=== PATIENT | female | born 1955 | race Caucasian/White ===

== ENCOUNTER 2019-01-14 18:25 | Emergency (ER) | payer MEDICAID, MEDICARE ==
[2019-01-14] MEDS ORDERED: NYSTATIN 15 GM TUBE TOP STA ×2 (18:36→18:47)
--- NOTE | 2019-01-14 18:42 | Emergency Department Record ---
History of Present Illness - General Chief complaint: Rash Stated complaint: RASH CHEST JABDOMIN Source: Patient Mode of Arrival: Ambulatory Limitations: No limitations - History of Present Illness Initial comments: 63 yo female presents with a rash under her breast that has been increasing for about two weeks. No fevers or chills. She has had similar rashes in the past due to large breasts. Her PCP is Dr Beltran. complaint: Rash -: Week(s) (2) Location: Chest Severity: Moderate Quality: Other (aches, moore) Consistency: Constant Improves with: None Worsens with: Other (large breasts) Context: Other Associated symptoms: Other - Related Data Home Medications Medication Instructions Recorded Confirmed Last Taken Bupropion HCl [Bupropion HCl Sr] 100 mg PO BID 01/14/19 01/14/19 01/14/19 Sertraline HCl [Zoloft] 100 mg PO DAILY 01/14/19 01/14/19 01/14/19 Previous Rx's Medication Instructions Recorded Nystatin 1 apply TP BID #60 gm 01/14/19 Nystatin 30 gm TP BID #4 oint...g. 01/14/19 Allergies Allergy/AdvReac Type Severity Reaction Status Date / Time Sulfa (Sulfonamide Allergy SWELLING Verified 01/14/19 18:31 Antibiotics) (GENERAL) Review of Systems Constitutional: Denies: Chills, Fever, Malaise, Night sweats, Weakness Eyes: Denies: Eye discharge ENT: Denies: Congestion Respiratory: Denies: Cough, Dyspnea Cardiovascular: Denies: Chest pain, Palpitations Endocrine: Denies: Fatigue Gastrointestinal: Denies: Abdominal pain, Diarrhea, Nausea, Vomiting Genitourinary: Denies: Dysuria, Frequency Musculoskeletal: Denies: Arthralgia, Back pain, Neck pain Skin: Reports: Change in color, Rash Neurological: Denies: Confusion, Headache Psychiatric: Denies: Anxiety Hematological/Lymphatic: Denies: Blood Clots, Easy bleeding, Easy bruising, Swollen glands Past Medical History - SOCIAL HISTORY Smoking Status: Former smoker - RESPIRATORY Hx Respiratory Disorders: Yes Hx COPD: Yes - CARDIOVASCULAR Hx Cardio Disorders: Yes Hx Hypertension: Yes - NEURO Hx Neuro Disorders: Yes Hx Headaches: Yes - GI Hx GI Disorders: Yes Hx Reflux: Yes - Hx Genitourinary Disorders: No - ENDOCRINE Hx Endocrine Disorders: No - MUSCULOSKELETAL Hx Musculoskeletal Disorders: No - PSYCH Hx Psych Problems: Yes Hx Anxiety: Yes Hx Depression: Yes - HEMATOLOGY/ONCOLOGY Hx Hematology/Oncology Disorders: No Physical Exam - General General Appearance: Alert, Oriented x3, Cooperative, No acute distress Limitations: No limitations - Head Head exam: Atraumatic, Normal inspection - Eye Eye exam: Normal appearance, PERRL. negative: Conjunctival injection - ENT ENT exam: Normal exam Ear exam: Normal external inspection Nasal Exam: Normal inspection Mouth exam: Normal external inspection - Neck Neck exam: Normal inspection - Respiratory Respiratory exam: Normal lung sounds bilaterally. negative: Decreased breath sounds, Prolonged expiratory - Cardiovascular Cardiovascular Exam: Normal rhythm, Normal heart sounds, Tachycardia Peripheral Pulses: 2+: Radial (R), Radial (L) - GI/Abdominal GI/Abdominal exam: Soft. negative: Tenderness - Rectal Rectal exam: Deferred - exam: Deferred - Extremities Extremities exam: Normal inspection Image of Full Body: 1 - irritated, erythematous, wheepy rash consistent with tinea under the large breasts where there is skin to skin contact - Back Back exam: Reports: Normal inspection - Neurological Neurological exam: Alert, Oriented X3 - Psychiatric Psychiatric exam: Normal affect, Normal mood - Skin Skin exam: Erythema, Rash. negative: Cyanosis, Normal color Type of lesion: Rash Distribution of rash: Chest Description of rash: Discharge, Erythematous Course - Reevaluation(s) Reevaluation #1: 01/14/19 18:40 The rash is consistent with tinea corpora due to her large breast, obesity with skin-skin contact The area was clean very well and nystatin applied I encouraged her to call her PCP tomorrow given this will take possibly a week or more to heal and the progress should be monitored Disposition Disposition: Discharge Clinical Impression: Tinea corporis Disposition: Home, Self-Care Condition: (1) Good Instructions: Tinea Corporis (ED) Additional Instructions: You must clean the skin twice daily and allow it to completely dry under the breasts Apply the Nystatin in the affected area after drying the skin Call your doctor to be seen this week for a recheck on the progress of the healing Prescriptions: Nystatin 30 gm TP BID #4 oint...g. Nystatin 1 apply TP BID #60 gm Forms: Patient Portal Access Quality - Quality Measures Quality Measures: N/A - Blood Pressure Screening Does Patient Have Any of the Following: Active Dx of HTN Blood Pressure Classification: Hypertensive Reading Systolic Measurement: 127 Diastolic Measurement: 106 Screening for High Blood Pressure: Patient Exclusion, Hx of HTN [G9744]
== END 2019-01-14 19:15 | disposition home or self-care (01) ==
LOC: ER 18:25
DX: B35.4 Tinea corporis (principal); I10 Essential (primary) hypertension
CPT/HCPCS: 99282

== ENCOUNTER 2019-05-16 07:36 | Inpatient (IN) | payer MEDICARE ==
[2019-05-16] MEDS ORDERED: IPRATROPIUM/ALBUTEROL (0.5MG/3MG) NEB INH ONE (07:47)
[2019-05-16] MEDS ORDERED: METHYLPREDNISOLONE PF 125MG/VIAL IVP ONE (08:16)
[2019-05-16] MEDS ORDERED: ALBUTEROL SULFATE (0.083%) 2.5 MG/3 ML NEB INH ONE ×2 (08:16→10:37)
[2019-05-16 08:28] LABS: ABSOLUTE NEUTROPHIL COUNT 4.48; BASO % 0.3 % (0-6); EOS % 2.3 % (0-6); GRAN % 57.1 % (47-80); HEMATOCRIT 42.1 % (35.0-47.0); HEMOGLOBIN 12.6 gm/dl (11.6-16.0); LYMPH % 31.8 % (16-45); MEAN CELL VOLUME 91.3 fl (81-97); MEAN CORPUSCULAR HEMOGLOBIN 27.3 pg (27-33); MEAN CORPUSCULAR HGB CONC 29.9 g/dl (32-36); MEAN PLATELET VOLUME 10.2 fl (7.4-10.4); MONO % 8.5 % (0-9); PLATELET COUNT 245 K/uL (130-400); RED BLOOD COUNT 4.61 M/uL (3.80-5.40); RED CELL DISTRIBUTION WIDTH 14.4 % (11.5-14.5); WHITE BLOOD COUNT W/O DIFF 7.9 K/uL (4.2-12.2)
[2019-05-16 08:41] LABS: BLOOD UREA NITROGEN 9 mg/dL (8-23); CREATININE 0.6 mg/dL (0.5-0.9); EST GLOMERULAR FILTRATION RATE > 60 mL/min
[2019-05-16 08:44] LABS: GLUCOSE,RANDOM 137 mg/dL (74-109)
--- NOTE | 2019-05-16 09:09 | Emergency Department Record ---
History of Present Illness - General Chief Complaint: Difficulty Breathing Stated Complaint: MARICARMEN Time Seen by Provider: 05/16/19 08:02 Source: Patient Mode of Arrival: Stretcher Limitations: No limitations - History of Present Illness Initial Comments: pt has been increasingly sob recently. pt had pfts recently. her sats were in the 80s when ems got there. she inproved w oxygen. she quit smoking 5mos ago MD Complaint: Shortness of breath Onset/Timin -: Week(s) Consistency: Constant Worsens With: Exertion Known History Of: COPD Treatments Prior to Arrival: Oxygen Treatment Prior to Arrival Comment:: 3 liters - Related Data Allergies Allergy/AdvReac Type Severity Reaction Status Date / Time Sulfa (Sulfonamide Allergy SWELLING Verified 01/14/19 18:31 Antibiotics) (GENERAL) Travel Screening - Travel/Exposure Within Last 30 Days Have you traveled within the last 30 days?: No - Travel/Exposure Within Last Year Have you traveled outside the [place] in the last year?: No - Additonal Travel Details Have you been exposed to anyone with a communicable illness?: No - Travel Symptoms Symptom Screening: None Review of Systems Reviewed: No additional complaints except as noted below Constitutional: Reports: As per HPI. Denies: Chills, Fever, Malaise, Night sweats, Weakness, Weight change Eyes: Reports: As per HPI. Denies: Eye discharge, Eye pain, Photophobia, Vision change ENT: Reports: As per HPI. Denies: Congestion, Dental pain, Ear pain, Epistaxis, Hearing loss, Throat pain Respiratory: Reports: As per HPI, Cough, Dyspnea. Denies: Hemoptysis, Stridor, Wheezes Cardiovascular: Reports: As per HPI. Denies: Arrhythmia, Chest pain, Dyspnea on exertion, Edema, Murmurs, Orthopnea, Palpitations, Paroxysmal nocturnal dyspnea, Rheumatic Fever, Syncope Endocrine: Reports: As per HPI. Denies: Fatigue, Heat or cold intolerance, Polydipsia, Polyuria Gastrointestinal: Reports: As per HPI. Denies: Abdominal pain, Constipation, Diarrhea, Hematemesis, Hematochezia, Melena, Nausea, Vomiting Genitourinary: Reports: As per HPI. Denies: Abnormal menses, Discharge, Dyspareunia, Dysuria, Frequency, Hematuria, Incontinence, Retention, Urgency Musculoskeletal: Reports: As per HPI. Denies: Arthralgia, Back pain, Gout, Joint swelling, Myalgia, Neck pain Skin: Reports: As per HPI. Denies: Bruising, Change in color, Change in hair/nails, Lesions, Pruritus, Rash Neurological: Reports: As per HPI. Denies: Abnormal gait, Confusion, Headache, Numbness, Paresthesias, Seizure, Tingling, Tremors, Vertigo, Weakness Psychiatric: Reports: As per HPI. Denies: Anxiety, Auditory hallucinations, Depression, Homicidal thoughts, Suicidal thoughts, Visual hallucinations Hematological/Lymphatic: Reports: As per HPI. Denies: Anemia, Blood Clots, Easy bleeding, Easy bruising, Swollen glands Past Medical History - SOCIAL HISTORY Smoking Status: Former smoker Alcohol Use: None Drug Use: None - RESPIRATORY Hx Respiratory Disorders: Yes Hx COPD: Yes - CARDIOVASCULAR Hx Cardio Disorders: Yes Hx Hypertension: Yes - NEURO Hx Neuro Disorders: Yes Hx Headaches: Yes - GI Hx GI Disorders: Yes Hx Reflux: Yes - Hx Genitourinary Disorders: No - ENDOCRINE Hx Endocrine Disorders: No - MUSCULOSKELETAL Hx Musculoskeletal Disorders: No - PSYCH Hx Psych Problems: Yes Hx Anxiety: Yes Hx Depression: Yes - HEMATOLOGY/ONCOLOGY Hx Hematology/Oncology Disorders: No Family Medical History Any Significant Family History?: No Physical Exam - General General Appearance: Alert, Oriented x3, Cooperative, Mild distress - Head Head exam: Normal inspection - Eye Eye exam: Normal appearance, PERRL, EOMI Pupils: Normal accommodation - ENT ENT exam: Normal exam, Mucous membranes moist, Normal external ear exam, Normal orophraynx Ear exam: Normal external inspection. negative: External canal tenderness Nasal Exam: Normal inspection. negative: Discharge, Sinus tenderness Mouth exam: Normal external inspection, Tongue normal Teeth exam: Normal inspection. negative: Dental caries Throat exam: Normal inspection. negative: Tonsillar erythema, Tonsillar exudate - Neck Neck exam: Normal inspection, Full ROM. negative: Tenderness - Respiratory Respiratory exam: Respiratory distress, Wheezes - Cardiovascular Cardiovascular Exam: Regular rate, Normal rhythm, Normal heart sounds - GI/Abdominal GI/Abdominal exam: Soft, Normal bowel sounds. negative: Tenderness - Rectal Rectal exam: Deferred - exam: Deferred - Extremities Extremities exam: Full ROM, Normal capillary refill, Pedal edema. negative: Tenderness - Back Back exam: Reports: Normal inspection, Full ROM. Denies: Muscle spasm, Rash noted, Tenderness - Neurological Neurological exam: Alert, CN II-XII intact, Normal gait, Oriented X3 - Psychiatric Psychiatric exam: Normal affect, Normal mood - Skin Skin exam: Dry, Intact, Normal color, Warm Course Vital Signs 05/16/19 05/16/19 05/16/19 07:42 07:50 08:20 Temperature 97.9 F Pulse Rate 70 71 Pulse Rate [ 67 Pulse Ox Probe] Respiratory 20 16 20 Rate Blood Pressure 173/80 Blood Pressure 142/86 [Right Arm] Pulse Ox 95 95 90 L 05/16/19 05/16/19 08:33 08:38 Temperature Pulse Rate 69 Pulse Rate [ Pulse Ox Probe] Respiratory 18 Rate Blood Pressure Blood Pressure [Right Arm] Pulse Ox 97 91 L - Reevaluation(s) Reevaluation #1: 05/16/19 10:38 pt feels better but her sats continue in the upper 80s on 2 ltrs so an abg was obtained. her co2 is 44.9 so her o2 was increased to 3ltrs 05/16/19 10:40 Medical Decision Making - Lab Data Result diagrams: 05/16/19 07:50 05/16/19 07:50 Lab Results 05/16/19 05/16/19 Range/Units 07:50 07:50 WBC 7.9 (4.2-12.2) K/uL RBC 4.61 (3.80-5.40) M/uL Hgb 12.6 (11.6-16.0) gm/dl Hct 42.1 (35.0-47.0) % MCV 91.3 (81-97) fl MCH 27.3 (27-33) pg MCHC 29.9 L (32-36) g/dl RDW 14.4 (11.5-14.5) % Plt Count 245 (130-400) K/uL MPV 10.2 (7.4-10.4) fl Gran % 57.1 (47-80) % Lymphocytes % 31.8 (16-45) % Monocytes % 8.5 (0-9) % Eosinophils % 2.3 (0-6) % Basophils % 0.3 (0-6) % Absolute Neutrophils 4.48 Sodium 142 (136-145) mmol/L Potassium 4.2 (3.4-4.5) mmol/L Chloride 102 (98-107) mmol/L Carbon Dioxide 27.0 (22-29) mmol/L Anion Gap 13.0 (7-16) BUN 9 (8-23) mg/dL Creatinine 0.6 (0.5-0.9) mg/dL Estimated GFR > 60 mL/min Random Glucose 137 H (74-109) mg/dL Calcium 8.9 (8.8-10.2) mg/dL NT-Pro-B Natriuret Pep 783.20 H (<125) pg/mL Disposition Disposition: Admit Clinical Impression: Acute exacerbation of chronic obstructive pulmonary disease (COPD), Hypoxia Disposition: Still a Patient at [facility] Decision to Admit: Admit from ER Decision to Admit Date: 05/16/19 Decision to Admit Time: 10:42 Forms: Patient Portal Access Quality - Quality Measures Quality Measures: N/A - Blood Pressure Screening Does Patient Have Any of the Following: Active Dx of HTN Blood Pressure Classification: Pre-Hypertensive BP Reading Systolic Measurement: 173 Diastolic Measurement: 80 Screening for High Blood Pressure: Patient Exclusion, Hx of HTN [G9744]
[2019-05-16 10:20] LABS: ARTERIAL BLOOD GAS BASE EXCESS 2.4 mmol/L (-2 - 3); ARTERIAL BLOOD GAS HCO3 26.9 mmol/L (18-23); ARTERIAL BLOOD GAS PCO2 44.9 mmHg (35-48)
[2019-05-16 10:23] LABS: CARBOXYHEMOGLOBIN 5.9 % (0-1.5)
[2019-05-16 10:24] LABS: ALLEN TEST PASS
[2019-05-16] MEDS ORDERED: ALBUTEROL SULFATE (0.083%) 2.5 MG/3 ML NEB INH PRN (11:03)
[2019-05-16] MEDS ORDERED: IPRATROPIUM/ALBUTEROL (0.5MG/3MG) NEB INH PRN (11:03)
[2019-05-16] MEDS ORDERED: ALPRAZOLAM 1 MG TAB PO SCH (11:03)
[2019-05-16] MEDS ORDERED: ALPRAZOLAM 0.25 MG TABLET PO PRN (12:01)
[2019-05-16] MEDS: METHYLPREDNISOLONE PF 125MG/VIAL IVP SCH ×2 (12:02→18:07)
--- NOTE | 2019-05-16 12:04 | History & Physical ---
History of Present Illness - Date of Service Date of Service for History & Physical: 05/17/19 - History of Present Illness Admitting Diagnosis: acute exacerbation of copd w hypoxia History of Present Illness: Mrs. Barboza if a 64 y/o female with a 55 pk/yr smoking history who presents with progressive shortness of breath over the past few weeks. The patient says that yesterday she went outside to get the mail and when she returned she could hardly breath. She says that she quit smoking cigarettes 5 months ago but she now Vapes. She says that she does not use home inhalers and has not had any previous diagnosis of COPD. She recently had a PFT done on 05/04/19 due to her increasing respiratory issues and this revealed obstructive lung disease and em physema. She has not yet followed up with her PCP. She denies chest pain, cough, fever or swelling of her lower extremities. On arrival to the ED the patient was dyspneic with saturations 86-89% and increased to > 90% with 2 liters nasal cannula oxygen. Chest xray was not suggestive of infiltrate or opacities but noted chronic interstitial disease and emphysema. The patient is admitted for new diagnosis of COPD w/ emphysema. PCP: Endy Beltran Travel Screening - Travel/Exposure Within Last 30 Days Have you traveled within the last 30 days?: No - Travel/Exposure Within Last Year Have you traveled outside the [place] in the last year?: No - Additonal Travel Details Have you been exposed to anyone with a communicable illness?: No - Travel Symptoms Symptom Screening: None Review of Systems Constitutional: Reports: As per HPI. Denies: Chills, Fever, Malaise, Night s weats, Weakness, Weight change Eyes: Reports: As per HPI. Denies: Eye discharge, Eye pain, Photophobia, Vision change ENT: Reports: As per HPI. Denies: Congestion, Dental pain, Ear pain, Epistaxis, Hearing loss, Throat pain Respiratory: Reports: As per HPI, Cough, Dyspnea. Denies: Hemoptysis, Stridor, Wheezes Cardiovascular: Reports: As per HPI. Denies: Arrhythmia, Chest pain, Dyspnea on exertion, Edema, Murmurs, Orthopnea, Palpitations, Paroxysmal nocturnal dyspnea, Rheumatic Fever, Syncope Endocrine: Reports: As per HPI. Denies: Fatigue, Heat or cold intolerance, Polydipsia, Polyuria Gastrointestinal: Reports: As per HPI. Denies: Abdominal pain, Constipation, Diarrhea, Hematemesis, Hematochezia, Melena, Nausea, Vomiting Genitourinary: Reports: As per HPI. Denies: Abnormal menses, Discharge, Dyspareunia, Dysuria, Frequency, Hematuria, Incontinence, Retention, Urgency Musculoskeletal: Reports: As per HPI. Denies: Arthralgia, Back pain, Gout, Joint swelling, Myalgia, Neck pain Skin: Reports: As per HPI. Denies: Bruising, Change in color, Change in rebecca r/nails, Lesions, Pruritus, Rash Neurological: Reports: As per HPI. Denies: Abnormal gait, Confusion, Headache, Numbness, Paresthesias, Seizure, Tingling, Tremors, Vertigo, Weakness Psychiatric: Reports: As per HPI. Denies: Anxiety, Auditory hallucinations, Depression, Homicidal thoughts, Suicidal thoughts, Visual hallucinations Hematological/Lymphatic: Reports: As per HPI. Denies: Anemia, Blood Clots, Easy bleeding, Easy bruising, Swollen glands Past Medical History - SOCIAL HISTORY Smoking Status: Former smoker Alcohol Use: None Alcohol Use Comment: recovered alcoholic Drug Use: None - RESPIRATORY Hx Respiratory Disorders: Yes Hx COPD: Yes - CARDIOVASCULAR Hx Cardio Disorders: Yes Hx Hypertension: Yes - NEURO Hx Neuro Disorders: Yes Hx Headaches: Yes - GI Hx GI Disorders: Yes Hx Reflux: Yes - Hx Genitourinary Disorders: No - ENDOCRINE Hx Endocrine Disorders: No - MUSCULOSKELETAL Hx Musculoskeletal Disorders: No - PSYCH Hx Psych Problems: Yes Hx Anxiety: Yes Hx Depression: Yes - HEMATOLOGY/ONCOLOGY Hx Hematology/Oncology Disorders: No Family Medical History Any Significant Family History?: Yes Hx Alcohol Use: Father Hx Cancer: Father H&P Meds/Allergies - Allergies Allergies: Allergies Allergy/AdvReac Type Severity Reaction Status Date / Time Sulfa (Sulfonamide Allergy SWELLING Verified 01/14/19 18:31 Antibiotics) (GENERAL) - Active Medications Active Medications: Current Medications Acetaminophen (Tylenol 500mg Tab) 1,000 mg PO Q6H PRN PRN Reason: PAIN - MILD(1-4)/FEVER Albuterol Sulfate (Albuterol Sulfate) 2.5 mg INH RESP.Q4H PRN PRN Reason: DIFFICULTY IN BREATHING Albuterol/Ipratropium (Duoneb) 3 ml INH RESP.Q6H PRN PRN Reason: WHEEZING Alprazolam (Xanax) 1 mg PO NOW [facility] Aspirin (Ecotrin (Ec)) 325 mg PO DAILY [facility] Methylprednisolone Sodium Succinate (Solu-Medrol) 60 mg IVP Q8H [facility] Metoprolol Succinate (Toprol Xl) 50 mg PO DAILY [facility] Non-Formulary Medication (Bupropion Hcl [Bupropion Hcl Sr]) 100 mg PO BID [facility] Non-Formulary Medication (Risperidone [Risperidone Odt]) 1 mg PO ASDIR [facility] Pantoprazole Sodium (Protonix) 40 mg PO DAILYAC [facility] Ranitidine HCl (Zantac) 300 mg PO QHS [facility] Sertraline HCl (Zoloft) 100 mg PO DAILY [facility] Theophylline (Giorgi-Dur) 300 mg PO BID [facility] Physical Exam - Vital Signs Vital Signs: Vital Signs - Last 24 Hrs Temp Pulse Pulse Resp BP BP Pulse Ox 05/16/19 11:39 20 05/16/19 11:19 98.8 F 70 17 187/88 96 05/16/19 11:15 78 12 171/95 90 L 05/16/19 10:44 78 12 97 05/16/19 10:30 76 16 171/95 89 L 05/16/19 09:30 69 18 157/87 89 L 05/16/19 09:00 66 18 178/99 89 L 05/16/19 08:38 91 L 05/16/19 08:33 69 18 97 05/16/19 08:20 67 20 142/86 90 L 05/16/19 07:50 71 16 95 05/16/19 07:42 97.9 F 70 20 173/80 95 - General General Appearance: Alert, Oriented x3, Cooperative, Mild distress Limitations: No limitations - Head Head exam: Normal inspection - Eye Eye exam: Normal appearance, PERRL, EOMI Pupils: Normal accommodation - ENT ENT exam: Normal exam, Mucous membranes moist, Normal external ear exam, Normal orophraynx Ear exam: Normal external inspection. negative: External canal tenderness Nasal Exam: Normal inspection. negative: Discharge, Sinus tenderness Mouth exam: Normal external inspection, Tongue normal Teeth exam: Normal inspection. negative: Dental caries Throat exam: Normal inspection. negative: Tonsillar erythema, Tonsillar exudate - Neck Neck exam: Normal inspection, Full ROM. negative: Tenderness - Respiratory Respiratory exam: Respiratory distress, Wheezes - Cardiovascular Cardiovascular Exam: Regular rate, Normal rhythm, Normal heart sounds - GI/Abdominal GI/Abdominal exam: Soft, Normal bowel sounds. negative: Tenderness - Rectal Rectal exam: Deferred - exam: Deferred - Extremities Extremities exam: Full ROM, Normal capillary refill, Pedal edema. negative: Tenderness - Back Back exam: Reports: Normal inspection, Full ROM. Denies: Muscle spasm, Rash noted, Tenderness - Neurological Neurological exam: Alert, CN II-XII intact, Normal gait, Oriented X3 - Psychiatric Psychiatric exam: Normal affect, Normal mood - Skin Skin exam: Dry, Intact, Normal color, Warm Results - Labs Result Diagrams: 05/17/19 06:05 05/17/19 06:05 Labs Last 24 Hours: Laboratory Results - last 24 hr 05/16/19 05/16/19 05/16/19 07:50 07:50 07:50 WBC 7.9 RBC 4.61 Hgb 12.6 Hct 42.1 MCV 91.3 MCH 27.3 MCHC 29.9 L RDW 14.4 Plt Count 245 MPV 10.2 Gran % 57.1 Lymphocytes % 31.8 Monocytes % 8.5 Eosinophils % 2.3 Basophils % 0.3 Absolute Neutrophils 4.48 Puncture Site pCO2 pO2 HCO3 Oxyhemoglobin ABG pH ABG O2 Saturation ABG Base Excess Frank Test Carboxyhemoglobin Methemoglobin Actual Respiration Rate FiO2 Sodium 142 Potassium 4.2 Chloride 102 Carbon Dioxide 27.0 Anion Gap 13.0 BUN 9 Creatinine 0.6 Estimated GFR > 60 Random Glucose 137 H Calcium 8.9 NT-Pro-B Natriuret Pep 783.20 H Theophylline 0.8 L 05/16/19 10:10 WBC RBC Hgb Hct MCV MCH MCHC RDW Plt Count MPV Gran % Lymphocytes % Monocytes % Eosinophils % Basophils % Absolute Neutrophils Puncture Site Left wrist pCO2 44.9 pO2 54.0 L HCO3 26.9 H Oxyhemoglobin Not Reportable ABG pH 7.40 ABG O2 Saturation 84.0 L* ABG Base Excess 2.4 Frank Test Pass Carboxyhemoglobin 5.9 H Methemoglobin Not Reportable Actual Respiration Rate 18.0 FiO2 Sodium Potassium Chloride Carbon Dioxide Anion Gap BUN Creatinine Estimated GFR Random Glucose Calcium NT-Pro-B Natriuret Pep Theophylline VTE H&P Assessment - Risk for VTE Risk for VTE: Yes Risk Level: Moderate Risk Assessment Date: 05/16/19 Risk Assessment Time: 12:03 VTE Orders Placed or Will Be Placed: Yes Plan - Inpatient Certification Inpatient Certification: Admit to inpatient care: Based on my medical assessment, after consideration of patient's risk factors (age, co-morbidities and patient presenting symptoms and acuity), I expect that this patient will remain in the hospital greater than or equal to two midnights and that the services needed warrant inpatient care because: Patient Risk Factors: COPD Exacerbation Estimated length of stay: 72 hours The patient may reasonably be expected to be discharged or transferred to a hospital within 96 hours after admission to [facility]. Post hospital care (if known): Oxygen therapy I certify that my determination is in accordance with my understanding of Medicare requirements for reasonable and necessary inpatient services. 05/16/19 12:03 - Detailed Diagnosis and Plan (1) Acute exacerbation of chronic obstructive pulmonary disease (COPD) Current Visit: Yes Status: Acute Base Code: J44.1 - CHRONIC OBSTRUCTIVE PULMONARY DISEASE W (ACUTE) EXACERBATION Comment: 05/16/19: - Hx of COPD/emphysema presenting with dyspnea. Not on home O2 therapy. - SaO2 on admission between 89-95%. - PFT 05/04/19: indicating FEV1 59% and FEV1/FVC ratio 69% (GOLD criteria II/ Grade B) - CXR: emphysetamous lungs with chronic interstitial changes. No infilitrates. - Respiratory therapy with Albuterol 2.5mg nebs Q4H PRN, Duonebs Q6H [facility] ruse daily. - Solumedrol 60mg Q8H, decrease to 60mg daily and then PO Prednisone at discharge. - Titrate oxygen to keep SaO2 > 90% - O2 qualifier for home oxygen therapy. (2) Hypoxia Current Visit: Yes Status: Acute Base Code: R09.02 - HYPOXEMIA Comment: 05/16/19: - SaO2 89% -95% on 2 liters NC - 2/2 to acute COPD exacerbation - Titrate oxygen to keep sats > 90% (3) Hypertension Current Visit: Yes Status: Acute Base Code: I10 - ESSENTIAL (PRIMARY) HYPERTENSION Comment: 05/16/19: - BP not controlled on Metoprolol XL 50mg daily. - Start Hydralazine 10mg QID, hold for SBP < 130. (4) Anxiety Current Visit: Yes Status: Acute Base Code: F41.9 - ANXIETY DISORDER, UNSPECIFIED Comment: 05/16/19: - Xanax .5mg Q12H PRN (5) DVT prophylaxis Current Visit: Yes Status: Acute Base Code: Z29.9 - ENCOUNTER FOR PROPHYLACTIC MEASURES, UNSPECIFIED Comment: 05/16/19: - Moderate risk of DVT due impaired pulmonary function and bed rest. - Lovenox 40mg SQ daily. (6) Full code status Current Visit: Yes Status: Acute Base Code: Z78.9 - OTHER SPECIFIED HEALTH STATUS Comment: 05/16/19: - Full code status.
[2019-05-16] MEDS: ENOXAPARIN 40 MG/0.4 ML SYR SC SCH (12:39)
[2019-05-16] MEDS: ACETAMINOPHEN 500 MG TABLET PO PRN ×2 (13:24→20:37)
[2019-05-16] MEDS: HYDRALAZINE HCL 10 MG TABLET PO SCH ×3 (13:24→22:02)
[2019-05-16] MEDS: RISPERIDONE 2 MG MC SCH ×2 (17:00→22:04)
[2019-05-16] MEDS: BUPROPION 100 MG MC SCH ×2 (17:00→22:04)
[2019-05-16] MEDS: RANITIDINE HCL 150 MG TABLET PO SCH ×2 (20:37→22:04)
[2019-05-16] MEDS: THEOPHYLLINE 300 MG PO SCH (22:02)
[2019-05-17] MEDS: METHYLPREDNISOLONE PF 125MG/VIAL IVP SCH ×2 (02:39→10:34)
[2019-05-17] MEDS: ACETAMINOPHEN 500 MG TABLET PO PRN ×2 (02:39→10:34)
[2019-05-17 06:44] LABS: HEMATOCRIT 40.2 % (35.0-47.0); HEMOGLOBIN 12.1 gm/dl (11.6-16.0); MEAN CELL VOLUME 91.2 fl (81-97); MEAN CORPUSCULAR HEMOGLOBIN 27.4 pg (27-33); MEAN CORPUSCULAR HGB CONC 30.1 g/dl (32-36); PLATELET COUNT 253 K/uL (130-400); RED BLOOD COUNT 4.41 M/uL (3.80-5.40); RED CELL DISTRIBUTION WIDTH 14.3 % (11.5-14.5); WHITE BLOOD COUNT W/O DIFF 9.9 K/uL (4.2-12.2)
[2019-05-17 06:55] LABS: BLOOD UREA NITROGEN 9 mg/dL (8-23); CREATININE 0.6 mg/dL (0.5-0.9); EST GLOMERULAR FILTRATION RATE > 60 mL/min; GLUCOSE,RANDOM 159 mg/dL (74-109)
[2019-05-17] MEDS ORDERED: PANTOPRAZOLE SODIUM 40 MG TABLET PO SCH (07:00)
[2019-05-17 07:10] LABS: PLATELET ESTIMATE NORMAL (NORMAL)
[2019-05-17] MEDS: METOPROLOL SUCC 50 MG TABLET PO SCH ×2 (08:17→09:09)
[2019-05-17] MEDS: HYDRALAZINE HCL 10 MG TABLET PO SCH ×2 (08:17→09:07)
[2019-05-17] MEDS: ENOXAPARIN 40 MG/0.4 ML SYR SC SCH ×2 (08:18→09:08)
[2019-05-17] MEDS: ASPIRIN 325 MG TAB ENTERIC-COATED PO SCH ×2 (08:18→09:07)
[2019-05-17] MEDS: RISPERIDONE 2 MG MC SCH ×2 (08:20→09:08)
[2019-05-17] MEDS: BUPROPION 100 MG MC SCH ×2 (08:20→09:08)
[2019-05-17] MEDS: THEOPHYLLINE 300 MG PO SCH (09:09)
[2019-05-17] MEDS ORDERED: SERTRALINE HCL 50 MG TABLET PO SCH (10:00)
[2019-05-17] MEDS ORDERED: UMECLIDINIUM BROMIDE (INCRUSE) 62.5MCG IH SCH (10:00)
--- NOTE | 2019-05-17 11:14 | Discharge Summary ---
Providers Discharge Summary Date: 05/17/19 Date of admission: 05/16/19 11:01 Attending physician: JOSE CRUZ Primary care physician: FARHANA BELTRAN D.O. Physical Exam - Vital Signs Vital Signs: Vital Signs - Last 24 Hrs Temp Pulse Pulse Resp BP BP Pulse Ox 05/17/19 07:38 98.5 F 99 H 16 179/101 92 L 05/17/19 07:37 24 05/17/19 05:45 98.7 F 95 H 20 182/84 94 L 05/16/19 21:30 97.4 F L 99 H 19 185/88 92 L 05/16/19 21:15 97 H 92 L 05/16/19 19:13 99.2 F 98 H 16 202/90 94 L 05/16/19 14:45 98.4 F 94 H 17 155/86 92 L 05/16/19 11:39 20 05/16/19 11:19 98.8 F 70 17 187/88 96 05/16/19 11:15 78 12 171/95 90 L - General General Appearance: Alert, Oriented x3, Cooperative, Mild distress Limitations: No limitations - Head Head exam: Normal inspection - Eye Eye exam: Normal appearance, PERRL, EOMI Pupils: Normal accommodation - ENT ENT exam: Normal exam, Mucous membranes moist, Normal external ear exam, Normal orophraynx Ear exam: Normal external inspection. negative: External canal tenderness Nasal Exam: Normal inspection. negative: Discharge, Sinus tenderness Mouth exam: Normal external inspection, Tongue normal Teeth exam: Normal inspection. negative: Dental caries Throat exam: Normal inspection. negative: Tonsillar erythema, Tonsillar exudate - Neck Neck exam: Normal inspection, Full ROM. negative: Tenderness - Respiratory Respiratory exam: Decreased breath sounds, Prolonged expiratory - Cardiovascular Cardiovascular Exam: Regular rate, Normal rhythm, Normal heart sounds Peripheral Pulses: 3+: Radial (R), Radial (L), Dorsalis Pedis (R), Dorsalis Pedis (L) - GI/Abdominal GI/Abdominal exam: Soft, Normal bowel sounds. negative: Tenderness - Rectal Rectal exam: Deferred - exam: Deferred - Extremities Extremities exam: Full ROM, Normal capillary refill, Pedal edema. negative: Tenderness - Back Back exam: Reports: Normal inspection, Full ROM. Denies: Muscle spasm, Rash noted, Tenderness - Neurological Neurological exam: Alert, CN II-XII intact, Normal gait, Oriented X3 - Psychiatric Psychiatric exam: Normal affect, Normal mood - Skin Skin exam: Dry, Intact, Normal color, Warm Hospitalization - Hospitalization Admission Diagnosis: acute exacerbation of copd w hypoxia - Problem List/Discharge Diagnosis (1) Acute exacerbation of chronic obstructive pulmonary disease (COPD) Current Visit: Yes Status: Acute Base Code: J44.1 - CHRONIC OBSTRUCTIVE PULMONARY DISEASE W (ACUTE) EXACERBATION Comment: 05/17/19: - Hx of COPD/emphysema presenting with dyspnea. Not on home O2 therapy. - SaO2 on admission between 89-95%. - PFT 05/04/19: indicating FEV1 59% and FEV1/FVC ratio 69% (GOLD criteria II/ Grade B) - CXR: emphysetamous lungs with chronic interstitial changes. No infilitrates. - Respiratory therapy with Albuterol 2.5mg nebs Q4H PRN, Duonebs Q6H OWEN, Incruse daily. - Solumedrol 60mg Q8H, decrease to 60mg daily and then PO Prednisone at discharge. - Titrate oxygen to keep SaO2 > 90% - O2 qualifier for home oxygen therapy completed. Sats 86% at rest on RA, Ambulatory 93% on 3 liters. Patient to wear oxygen at all times. (2) Hypoxia Current Visit: Yes Status: Acute Base Code: R09.02 - HYPOXEMIA Comment: 05/17/19: - SaO2 86% -89% on 2 liters NC in ED - 2/2 to acute COPD exacerbation - Titrate oxygen to keep sats > 90% - Oxygen qualifier: 86% RA at rest. (3) Hypertension Current Visit: Yes Status: Acute Base Code: I10 - ESSENTIAL (PRIMARY) HYPERTENSION Comment: 05/17/19: - BP not controlled on Metoprolol XL 50mg daily. - Start Hydralazine 10mg QID, hold for SBP < 130. - BP at discharge 150/86 (4) Anxiety Current Visit: Yes Status: Acute Base Code: F41.9 - ANXIETY DISORDER, UNSPECIFIED Comment: 05/17/19: - Xanax .5mg Q12H PRN (5) DVT prophylaxis Current Visit: Yes Status: Acute Base Code: Z29.9 - ENCOUNTER FOR PROPHYLACTIC MEASURES, UNSPECIFIED Comment: 05/17/19: - Moderate risk of DVT due impaired pulmonary function and bed rest. - Lovenox 40mg SQ daily. (6) Full code status Current Visit: Yes Status: Acute Base Code: Z78.9 - OTHER SPECIFIED HEALTH STATUS Comment: 05/17/19: - Full code status. - Hospitalization Course Procedures: Imaging and X-Rays 05/16/19 08:16 CHEST 2 VIEWS [RAD] Stat Cardiology Procedures 05/16/19 08:16 Inpatient Nursing Aide NOW Abnormal Labs: Abnormal Lab Results 05/16/19 05/16/19 05/16/19 Range/Units 07:50 07:50 07:50 MCHC 29.9 L (32-36) g/dl Neutrophils % (47-80) % Lymphocytes (16-45) % pO2 (83-108) mmHg HCO3 (18-23) mmol/L ABG O2 Saturation (95-98) % Carboxyhemoglobin (0-1.5) % Random Glucose 137 H (74-109) mg/dL NT-Pro-B Natriuret Pep 783.20 H (<125) pg/mL Theophylline 0.8 L (10.0-20.0) ug/mL 05/16/19 05/17/19 05/17/19 Range/Units 10:10 06:05 06:05 MCHC 30.1 L (32-36) g/dl Neutrophils % 83.0 H (47-80) % Lymphocytes 12.0 L (16-45) % pO2 54.0 L (83-108) mmHg HCO3 26.9 H (18-23) mmol/L ABG O2 Saturation 84.0 L* (95-98) % Carboxyhemoglobin 5.9 H (0-1.5) % Random Glucose 159 H (74-109) mg/dL NT-Pro-B Natriuret Pep (<125) pg/mL Theophylline (10.0-20.0) ug/mL Condition at Discharge: (1) Good Discharge Medications - Discharge Medications Prescriptions: Hydralazine HCl [Apresoline] 10 mg PO TID #30 tablet Home Medications: Ambulatory Orders Alprazolam [Xanax] 1 mg PO NOW 04/28/15 [Last Taken 05/16/19] Aspirin [Aspirin EC] 325 mg PO DAILY 04/28/15 [Last Taken 05/16/19] Metoprolol Succinate [Toprol Xl] 50 mg PO DAILY 04/28/15 [Last Taken 05/16/19] Omeprazole [Prilosec] 20 mg PO DAILY 04/28/15 [Last Taken 05/16/19] Ranitidine HCl [Zantac] 300 mg PO QHS 04/28/15 [Last Taken 05/15/19] Risperidone [Risperidone Odt] 1 mg PO ASDIR 04/28/15 [Last Taken 05/16/19] Tiotropium [place] [Spiriva] 1 cap IH ASDIR 04/28/15 [Last Taken 05/16/19] Bupropion HCl [Bupropion HCl Sr] 100 mg PO BID 01/14/19 [Last Taken 05/16/19] Sertraline HCl [Zoloft] 100 mg PO DAILY 01/14/19 [Last Taken 05/16/19] Albuterol Sulfate [Ventolin Hfa] 1 - 2 puff IH DAILY PRN #1 inhaler 05/17/19 [Last Taken Unknown] Hydralazine HCl [Apresoline] 10 mg PO TID #30 tablet 05/17/19 [Last Taken Unknown] Prednisone [Prednisone 20Mg] 40 mg PO DAILY #6 tab 05/17/19 [Last Taken Unknown] Discharge Plan - Discharge Instructions Activity at Discharge: Wear Oxygen At All Times Diet at Discharge: Low Salt Diet Additional Instructions: Wear oxygen at all times. Keep at 3 liters. Use Spiriva daily as instructed. Albuterol rescue inhaler prescribed is to be used as needed for shortness of breath. Prednisone 40mg, 40mg, 20mg, 20mg tapering dose for the next 4 days. Follow up with Dr. Beltran this week. Quality Measures - Quality Measures Quality Measures: Advance Directives, Documentation of Current Medications in Medical Record, Elder Maltreatment Screen and Follow-Up Plan, Screening for High Blood Pressure and F/U Documented - Current Medications Quality Measure: Measure #130: Documentation of Current Medications Documentation of Current Medications: <Current Medications Documented/Reviewed> [G8427] - Blood Pressure Screening Quality Measure: Screening for High Blood Pressure and Follow-Up Documented Does Patient Have Any of the Following: Active Dx of HTN Blood Pressure Classification: Hypertensive Reading Systolic Measurement: 171 Diastolic Measurement: 95 Screening for High Blood Pressure: Patient Exclusion, Hx of HTN [G9744] - Advance Directives Quality Measure: Measure #47: Care Plan Advance Directives Established: No Advance Directives Information Provided To Patient: No Advance Directives on File: No Living Will: No Power of Swing Saw Operator: No Advance Care Planning: <Care Plan/Decision Maker Not Decided; Discussed & Documented> [1124F] - Elder Abuse Suspicion Index Screening: Elder Abuse Suspicion Index Screening Rely on people for bathing, dressing, shopping, banking, etc: No Prevented from getting food, clothes, medication, etc: No Made to feel shamed or threatened by someone: No Forced to sign papers or use money against will: No Feel afraid, touched in ways not wanted or hurt physically: No Poor eye contact, withdrawn, malnourished, cuts or bruises: No Screening Result: Negative result EASI Reference Information: Shannon DOMINGO, Tavon C, Cale D, Danial Membreno.Development and validation of a tool to assist physicians identification of elder abuse: The Elder Abuse Suspicion Index (EASI ). Journal of Elder Abuse and Neglect, 2008; 20 (3): 276-300. - Elder Maltreatment Screen Quality Measures: Elder Maltreatment Screen and Follow-Up Plan Elder Maltreatment Screen: <Negative, No Follow-Up Plan Required> [G8873]
--- NOTE | 2019-05-19 06:35 | RADIOLOGY REPORT ---
EXAM: CHEST, TWO VIEWS HISTORY: LOW OXYGEN SATURATION. TECHNIQUE: Two views of the chest were obtained. Comparison: None. FINDINGS: There is emphysema in the upper lobes. There is chronic interstitial disease in the lower lobes bilaterally. No sign of pneumonia, pleural effusion or pneumothorax. Mild cardiomegaly. Skeletal structures are unremarkable for acute process. IMPRESSION: EMPHYSEMA AND CHRONIC INTERSTITIAL DISEASE. NO SIGN OF ACUTE CHEST PATHOLOGY. JOB NUMBER: [id number] [facility]
== END 2019-05-17 12:36 | disposition home or self-care (01) | DRG 192 ==
LOC: ER 07:36 → MEDSURG 11:01
PROVIDERS: ADMIT Internal Medicine; ATTEND Internal Medicine
DX: J44.1 Chronic obstructive pulmonary disease with (acute) exacerbation (principal); R09.02 Hypoxemia; I10 Essential (primary) hypertension; F41.9 Anxiety disorder, unspecified; K21.9 Gastro-esophageal reflux disease without esophagitis; J43.9 Emphysema, unspecified; Z95.5 Presence of coronary angioplasty implant and graft; Z79.01 Long term (current) use of anticoagulants; Z87.891 Personal history of nicotine dependence
CPT/HCPCS: 36600; 71046; 80048; 80198; 82375; 82803; 83880; 85025; 85027; 94618; 94640; 94760; 96374; 99223; 99285; J1650; J2930; J7613

== ENCOUNTER 2019-07-21 08:03 | Inpatient (IN) | payer MEDICARE, MEDICAID ==
[2019-07-21] MEDS ORDERED: IPRATROPIUM/ALBUTEROL (0.5MG/3MG) NEB INH ONE (08:33)
[2019-07-21] MEDS ORDERED: METHYLPREDNISOLONE PF 125MG/VIAL IVP ONE (08:33)
[2019-07-21 08:45] LABS: ABSOLUTE NEUTROPHIL COUNT 5.71; BASO % 0.2 % (0-6); EOS % 0.9 % (0-6); GRAN % 66.6 % (47-80); HEMATOCRIT 40.3 % (35.0-47.0); HEMOGLOBIN 12.2 gm/dl (11.6-16.0); LYMPH % 24.2 % (16-45); MEAN CELL VOLUME 91.6 fl (81-97); MEAN CORPUSCULAR HEMOGLOBIN 27.7 pg (27-33); MEAN CORPUSCULAR HGB CONC 30.3 g/dl (32-36); MEAN PLATELET VOLUME 10.1 fl (7.4-10.4); MONO % 8.1 % (0-9); PLATELET COUNT 255 K/uL (130-400); RED CELL DISTRIBUTION WIDTH 14.6 % (11.5-14.5); WHITE BLOOD COUNT W/O DIFF 8.6 K/uL (4.2-12.2)
[2019-07-21 08:55] LABS: BLOOD UREA NITROGEN 8 mg/dL (8-23); CREATININE 0.6 mg/dL (0.5-0.9); EST GLOMERULAR FILTRATION RATE > 60 mL/min
[2019-07-21 08:57] LABS: GLUCOSE,RANDOM 140 mg/dL (74-109)
--- NOTE | 2019-07-21 08:59 | Emergency Department Record ---
History of Present Illness - General Chief Complaint: Difficulty Breathing Stated Complaint: MARICARMEN Time Seen by Provider: 07/21/19 08:18 Source: Patient, Family Mode of Arrival: Ambulatory Limitations: No limitations - History of Present Illness Initial Comments: pt has been sob when she walks and better when she rests. she states her cough is nonproductive. this is not new but debilitating. she has not had fever, sweats or chills. no cp. pt stopped smoking 6mos ago Complaint: Shortness of breath Onset/Timin -: Days(s) Consistency: Constant Improves With: Rest Worsens With: Exertion, Movement Associated Symptoms: Cough - Related Data Home Oxygen Therapy: Yes Home Oxygen Amount: 3 Liters Previous Rx's Medication Instructions Recorded Albuterol Sulfate [Ventolin Hfa] 1 - 2 puff IH DAILY PRN #1 inhaler 05/17/19 Hydralazine HCl [Apresoline] 10 mg PO TID #30 tablet 05/17/19 Allergies Allergy/AdvReac Type Severity Reaction Status Date / Time Sulfa (Sulfonamide Allergy SWELLING Verified 07/21/19 08:19 Antibiotics) (GENERAL) Travel Screening - Travel/Exposure Within Last 30 Days Have you traveled within the last 30 days?: No - Travel/Exposure Within Last Year Have you traveled outside the [place] in the last year?: No - Additonal Travel Details Have you been exposed to anyone with a communicable illness?: No - Travel Symptoms Symptom Screening: None Review of Systems Reviewed: No additional complaints except as noted below Constitutional: Reports: As per HPI. Denies: Chills, Fever, Malaise, Night sweats, Weakness, Weight change Eyes: Reports: As per HPI. Denies: Eye discharge, Eye pain, Photophobia, Vision change ENT: Reports: As per HPI. Denies: Congestion, Dental pain, Ear pain, Epistaxis, Hearing loss, Throat pain Respiratory: Reports: As per HPI. Denies: Cough, Dyspnea, Hemoptysis, Stridor, Wheezes Cardiovascular: Reports: As per HPI. Denies: Arrhythmia, Chest pain, Dyspnea on exertion, Edema, Murmurs, Orthopnea, Palpitations, Paroxysmal nocturnal dyspnea, Rheumatic Fever, Syncope Endocrine: Reports: As per HPI. Denies: Fatigue, Heat or cold intolerance, Polydipsia, Polyuria Gastrointestinal: Reports: As per HPI. Denies: Abdominal pain, Constipation, Diarrhea, Hematemesis, Hematochezia, Melena, Nausea, Vomiting Genitourinary: Reports: As per HPI. Denies: Abnormal menses, Discharge, Dyspareunia, Dysuria, Frequency, Hematuria, Incontinence, Retention, Urgency Musculoskeletal: Reports: As per HPI. Denies: Arthralgia, Back pain, Gout, Joint swelling, Myalgia, Neck pain Skin: Reports: As per HPI. Denies: Bruising, Change in color, Change in hair/nails, Lesions, Pruritus, Rash Neurological: Reports: As per HPI. Denies: Abnormal gait, Confusion, Headache, Numbness, Paresthesias, Seizure, Tingling, Tremors, Vertigo, Weakness Psychiatric: Reports: As per HPI. Denies: Anxiety, Auditory hallucinations, Depression, Homicidal thoughts, Suicidal thoughts, Visual hallucinations Hematological/Lymphatic: Reports: As per HPI. Denies: Anemia, Blood Clots, Easy bleeding, Easy bruising, Swollen glands Past Medical History - SOCIAL HISTORY Smoking Status: Former smoker Alcohol Use: None Drug Use: None - RESPIRATORY Hx Respiratory Disorders: Yes Hx COPD: Yes - CARDIOVASCULAR Hx Cardio Disorders: Yes Hx Hypertension: Yes - NEURO Hx Neuro Disorders: Yes Hx Headaches: Yes - GI Hx GI Disorders: Yes Hx Reflux: Yes - Hx Genitourinary Disorders: No - ENDOCRINE Hx Endocrine Disorders: No - MUSCULOSKELETAL Hx Musculoskeletal Disorders: No - PSYCH Hx Psych Problems: Yes Hx Anxiety: Yes Hx Depression: Yes - HEMATOLOGY/ONCOLOGY Hx Hematology/Oncology Disorders: No Family Medical History Any Significant Family History?: No Hx Alcohol Use: Father Hx Cancer: Father Physical Exam - General General Appearance: Alert, Oriented x3, Cooperative, Mild distress - Head Head exam: Normal inspection - Eye Eye exam: Normal appearance, PERRL, EOMI Pupils: Normal accommodation - ENT ENT exam: Normal exam, Mucous membranes moist, Normal external ear exam, Normal orophraynx Ear exam: Normal external inspection. negative: External canal tenderness Nasal Exam: Normal inspection. negative: Discharge, Sinus tenderness Mouth exam: Normal external inspection, Tongue normal Teeth exam: Normal inspection. negative: Dental caries Throat exam: Normal inspection. negative: Tonsillar erythema, Tonsillar exudate - Neck Neck exam: Normal inspection, Full ROM. negative: Tenderness - Respiratory Respiratory exam: Accessory muscle use, Respiratory distress, Wheezes - Cardiovascular Cardiovascular Exam: Regular rate, Normal rhythm, Normal heart sounds - GI/Abdominal GI/Abdominal exam: Soft, Normal bowel sounds. negative: Tenderness - Rectal Rectal exam: Deferred - exam: Deferred - Extremities Extremities exam: Normal inspection, Full ROM, Normal capillary refill. negative: Tenderness - Back Back exam: Reports: Normal inspection, Full ROM. Denies: Muscle spasm, Rash noted, Tenderness - Neurological Neurological exam: Alert, CN II-XII intact, Normal gait, Oriented X3 - Psychiatric Psychiatric exam: Normal affect, Normal mood - Skin Skin exam: Dry, Intact, Normal color, Warm Course Vital Signs 07/21/19 07/21/19 07/21/19 08:06 08:49 08:52 Temperature 98.6 F Pulse Rate 62 Pulse Rate [ 70 Pulse Ox Probe] Respiratory 24 20 Rate Blood Pressure 149/90 Blood Pressure 140/81 [Right Arm] Pulse Ox 95 91 L 91 L - Reevaluation(s) Reevaluation #1: 07/21/19 10:34 pt contd to desat despite steroids and breathing treatments . she desatted to mid 70s when she walked to the bathroom wearing 3 ltrs of Oxygen Medical Decision Making - Lab Data Result diagrams: 07/21/19 08:15 07/21/19 08:15 Lab Results 07/21/19 Range/Units 08:15 WBC 8.6 (4.2-12.2) K/uL RBC 4.40 (3.80-5.40) M/uL Hgb 12.2 (11.6-16.0) gm/dl Hct 40.3 (35.0-47.0) % MCV 91.6 (81-97) fl MCH 27.7 (27-33) pg MCHC 30.3 L (32-36) g/dl RDW 14.6 H (11.5-14.5) % Plt Count 255 (130-400) K/uL MPV 10.1 (7.4-10.4) fl Gran % 66.6 (47-80) % Lymphocytes % 24.2 (16-45) % Monocytes % 8.1 (0-9) % Eosinophils % 0.9 (0-6) % Basophils % 0.2 (0-6) % Absolute Neutrophils 5.71 Disposition Disposition: Admit Clinical Impression: COPD with acute exacerbation, Hypoxia Disposition: Still a Patient at [facility] Decision to Admit: Admit from ER Decision to Admit Date: 07/21/19 Decision to Admit Time: 11:17 Forms: Patient Portal Access Quality - Quality Measures Quality Measures: N/A - Blood Pressure Screening Does Patient Have Any of the Following: Active Dx of HTN Blood Pressure Classification: Hypertensive Reading Systolic Measurement: 149 Diastolic Measurement: 90 Screening for High Blood Pressure: Patient Exclusion, Hx of HTN [G9744]
[2019-07-21 09:00] LABS: ALB/GLOB RATIO 1.4 (1.1-1.8); ALBUMIN 4.1 g/dL (4.0-5.0); ALKALINE PHOSPHATASE 96 U/L (35-104); ALT/SGPT 19 U/L (<33); AST/SGOT 34 U/L (10.0-35.0)
[2019-07-21] MEDS ORDERED: ALBUTEROL SULFATE (0.083%) 2.5 MG/3 ML NEB INH ONE ×2 (10:02→10:38)
--- NOTE | 2019-07-21 10:12 | CT ANGIOGRAM REPORT ---
EXAMINATION: CT Angiography of the Thorax EXAM DATE: 07/21/2019 9:54 AM TECHNIQUE: Standard protocol CT angiogram images were obtained through the chest following the admini stration of intravenous contrast. Coronal and sagittal MIP 3-D reformations were performed. IV Contrast: The amount and type of contrast are recorded in the medical record. INDICATION: sob, hi d-dimer. COMPARISON: Chest radiograph 05/16/2019 ENCOUNTER: Not applicable FINDINGS: Pulmonary Artery: There is no central or lobar pulmonary artery embolism. There is motion artifact se verely degrading evaluation of the distal segmental and subsegmental pulmonary arteries. The main pulmonary trunk is enlarged and measures 3.5 cm in diameter likely reflecting pulmonary hype rtension. Aorta: No thoracic aortic aneurysm or dissection is present. Right Heart Strain: None. Heart : There is no pericardial effusion. The heart size is enlarged. Left main coronary artery calc ifications are noted which can reflect pulmonary disease. [place] and Mediastinum: Enlarged lower right paratracheal lymph nodes measure up to 1.3 cm in short axi s. Enlarged 1.2 cm AP window lymph node is seen. There is bilateral perihilar adenopathy with lymph n odes measuring up to 1.2 cm on the right and 1 cm on the left. Lung Parenchyma: There is moderate centrilobular emphysematous changes of the lung. Patchy groundgla ss attenuation of the parenchyma may be related to interstitial pulmonary edema. Right lower lobe con solidation is seen likely related to compressive atelectasis. Central Airways: No peribronchial thickening or bronchiectasis. Pleural Effusion: A small right pleural effusion is present with associated compressive atelectasis of the posterior right lower lobe. Upper Abdomen: Unremarkable. Musculoskeletal and Chest Wall: Unremarkable. Multilevel degenerative changes of the spine are presen t. IMPRESSION: 1. No central pulmonary embolism given limitations of the exam as detailed above. 2. Nonspecific patchy groundglass attenuation of the lung parenchyma is likely related to pulmonary e otoniel. 3. Small right pleural effusion with associated right lower lobe consolidation. 4. Enlarged main pulmonary trunk likely related to pulmonary hypertension. 5. Mediastinal and perihilar adenopathy, greater on the left, as detailed above. Findings may represe nt reactive nodes. Follow-up CT chest in 6 months is recommended to confirm stability/resolution. 6. Cardiomegaly with coronary artery disease. 7. Moderate centrilobular emphysematous changes of the lung. Dictated by: Alexander Juarez DO on 07/21/2019 9:59 AM. .
[2019-07-21 11:09] LABS: ARTERIAL BLOOD GAS BASE EXCESS 5.1 mmol/L (-2 - 3); ARTERIAL BLOOD GAS HCO3 29.6 mmol/L (18-23); ARTERIAL BLOOD GAS PCO2 46.4 mmHg (35-48); ARTERIAL BLOOD GAS pH 7.42 (7.35-7.45)
[2019-07-21 11:10] LABS: ALLEN TEST PASS
[2019-07-21] MEDS ORDERED: ALPRAZOLAM 1 MG TAB PO SCH (13:18)
[2019-07-21] MEDS ORDERED: ALBUTEROL SULFATE (0.083%) 2.5 MG/3 ML NEB INH PRN (13:18)
[2019-07-21] MEDS: IPRATROPIUM/ALBUTEROL (0.5MG/3MG) NEB INH PRN ×2 (13:53→18:06)
[2019-07-21] MEDS ORDERED: PNEUM 13-VAL/PF 0.5 ML IM ONE (14:33)
[2019-07-21] MEDS ORDERED: FLU VAC QS 2019-20 (INPT, 6MO+) 60MCG/0.5ML IM ONE (14:33)
[2019-07-21] MEDS: METHYLPREDNISOLONE PF 125MG/VIAL IVP SCH ×2 (14:48→21:20)
--- NOTE | 2019-07-21 14:57 | History & Physical ---
History of Present Illness - Date of Service Date of Service for History & Physical: 07/21/19 - History of Present Illness Admitting Diagnosis: acute exacerbation of copd with hypoxia History of Present Illness: 64 y/o female presented to ED for shortness of breath, worse with walking and a non-productive cough. Reports overall ot feeling well for about 1.5 weeks with increased cough and body aches. Denies fever, chills, chest pain. Past medical history includes oxygen dependent COPD (3L), former cigarette smoker (quit 6 months ago), HTN, headaches, GERD, anxiety and depression. While in ED was afebrile, RR 24, SPO2 95%, down to 86% on 3L with activity. CBC unremarkable. D-Dimer 1.02. ABG pH 7.42, pO2 66, HCo3 29.6. CMP unremarkable. ProBNP 837.60. CTA- pulmonary HTN, enlarged right peritracheal lymph nodes, enlarged AP window lymph modes, bilar perinular adenopathy, moderate emphysematous changes, patchy ground glass attenuation to lung parenchyma 2/2 pulmonary edema, small RLL pleural effusion with consolidation. Admitted for IV antibiotics, IV steroids. 07/21/19 1500- resting in bed comfortably, reports her shortness of breath has much improved since arrival to the ED but not at baseline. Denies any new swelling or activity intolerance at home outside of current symptoms and illness. Travel Screening - Travel/Exposure Within Last 30 Days Have you traveled within the last 30 days?: No - Travel/Exposure Within Last Year Have you traveled outside the [place] in the last year?: No - Additonal Travel Details Have you been exposed to anyone with a communicable illness?: No - Travel Symptoms Symptom Screening: None Review of Systems Constitutional: Reports: As per HPI. Denies: Chills, Fever, Malaise, Night sweats, Weakness, Weight change Eyes: Reports: As per HPI. Denies: Eye discharge, Eye pain, Photophobia, Vision change ENT: Reports: As per HPI. Denies: Congestion, Dental pain, Ear pain, Epistaxis, Hearing loss, Throat pain Respiratory: Reports: As per HPI. Denies: Cough, Dyspnea, Hemoptysis, Stridor, Wheezes Cardiovascular: Reports: As per HPI. Denies: Arrhythmia, Chest pain, Dyspnea on exertion, Edema, Murmurs, Orthopnea, Palpitations, Paroxysmal nocturnal dyspnea, Rheumatic Fever, Syncope Endocrine: Reports: As per HPI. Denies: Fatigue, Heat or cold intolerance, Polydipsia, Polyuria Gastrointestinal: Reports: As per HPI. Denies: Abdominal pain, Constipation, Diarrhea, Hematemesis, Hematochezia, Melena, Nausea, Vomiting Genitourinary: Reports: As per HPI. Denies: Abnormal menses, Discharge, Dyspareunia, Dysuria, Frequency, Hematuria, Incontinence, Retention, Urgency Musculoskeletal: Reports: As per HPI. Denies: Arthralgia, Back pain, Gout, Joint swelling, Myalgia, Neck pain Skin: Reports: As per HPI. Denies: Bruising, Change in color, Change in hair/nails, Lesions, Pruritus, Rash Neurological: Reports: As per HPI. Denies: Abnormal gait, Confusion, Headache, Numbness, Paresthesias, Seizure, Tingling, Tremors, Vertigo, Weakness Psychiatric: Reports: As per HPI. Denies: Anxiety, Auditory hallucinations, Depression, Homicidal thoughts, Suicidal thoughts, Visual hallucinations Hematological/Lymphatic: Reports: As per HPI. Denies: Anemia, Blood Clots, Easy bleeding, Easy bruising, Swollen glands Past Medical History - SOCIAL HISTORY Smoking Status: Former smoker Alcohol Use: None Drug Use: None - RESPIRATORY Hx Respiratory Disorders: Yes Hx COPD: Yes - CARDIOVASCULAR Hx Cardio Disorders: Yes Hx Hypertension: Yes - NEURO Hx Neuro Disorders: Yes Hx Headaches: Yes - GI Hx GI Disorders: Yes Hx Reflux: Yes - Hx Genitourinary Disorders: No - ENDOCRINE Hx Endocrine Disorders: No - MUSCULOSKELETAL Hx Musculoskeletal Disorders: No - PSYCH Hx Psych Problems: Yes Hx Anxiety: Yes Hx Depression: Yes - HEMATOLOGY/ONCOLOGY Hx Hematology/Oncology Disorders: No Family Medical History Any Significant Family History?: No Hx Alcohol Use: Father Hx Cancer: Father H&P Meds/Allergies - Allergies Allergies: Allergies Allergy/AdvReac Type Severity Reaction Status Date / Time Sulfa (Sulfonamide Allergy SWELLING Verified 07/21/19 08:19 Antibiotics) (GENERAL) - Home Medications Previous Rx's Medication Instructions Recorded Albuterol Sulfate [Ventolin Hfa] 1 - 2 puff IH DAILY PRN #1 inhaler 05/17/19 Hydralazine HCl [Apresoline] 10 mg PO TID #30 tablet 05/17/19 - Active Medications Active Medications: Current Medications Acetaminophen (Tylenol 500mg Tab) 1,000 mg PO Q6H PRN PRN Reason: PAIN - MILD(1-4)/FEVER Albuterol Sulfate (Albuterol Sulfate) 2.5 mg INH RESP.Q4H PRN PRN Reason: DIFFICULTY IN BREATHING Albuterol/Ipratropium (Duoneb) 3 ml INH RESP.Q6H PRN PRN Reason: WHEEZING Last Admin: 07/21/19 13:53 Dose: 3 ml Documented by: Alprazolam (Xanax) 1 mg PO NOW OWEN Aspirin (Ecotrin (Ec)) 325 mg PO DAILY [facility] Enoxaparin Sodium (Lovenox) 40 mg SQ DAILY [facility] Hydralazine HCl (Apresoline) 10 mg PO TID [facility] Methylprednisolone Sodium Succinate (Solu-Medrol) 60 mg IVP Q8H OWEN Last Admin: 07/21/19 14:48 Dose: Not Given Documented by: Metoprolol Succinate (Toprol Xl) 50 mg PO DAILY [facility] Non-Formulary Medication (Bupropion Hcl [Bupropion Hcl Sr]) 100 mg PO BID OWEN Non-Formulary Medication (Risperidone [Risperidone Odt]) 1 mg PO ASDIR OWEN Pantoprazole Sodium (Protonix) 40 mg PO DAILYAC OWEN Pneumococcal 13-Valent Conj Vacc (Prevnar 13) 0.5 ml IM .ONCE ONE Stop: 07/21/19 14:34 Ranitidine HCl (Zantac) 300 mg PO QHS [facility] Sertraline HCl (Zoloft) 100 mg PO DAILY [facility] Physical Exam - Vital Signs Vital Signs: Vital Signs - Last 24 Hrs Temp Pulse Pulse Resp BP BP BP 07/21/19 14:35 86 18 07/21/19 13:54 61 18 07/21/19 12:35 86 22 143/62 07/21/19 12:07 86 22 143/82 07/21/19 11:12 07/21/19 11:11 86 20 07/21/19 10:43 24 150/59 07/21/19 10:06 77 20 07/21/19 08:52 07/21/19 08:51 68 20 07/21/19 08:49 70 20 140/81 07/21/19 08:06 98.6 F 62 24 149/90 Pulse Ox 07/21/19 14:35 07/21/19 13:54 93 L 07/21/19 12:35 90 L 07/21/19 12:07 90 L 07/21/19 11:12 91 L 07/21/19 11:11 94 L 07/21/19 10:43 86 L 07/21/19 10:06 95 07/21/19 08:52 91 L 07/21/19 08:51 92 L 07/21/19 08:49 91 L 07/21/19 08:06 95 - General General Appearance: Alert, Oriented x3, Cooperative, No acute distress Limitations: No limitations - Head Head exam: Normal inspection - Eye Eye exam: Normal appearance, PERRL, EOMI Pupils: Normal accommodation - ENT ENT exam: Normal exam, Mucous membranes moist, Normal external ear exam, Normal orophraynx Ear exam: Normal external inspection. negative: External canal tenderness Nasal Exam: Normal inspection. negative: Discharge, Sinus tenderness Mouth exam: Normal external inspection, Tongue normal Teeth exam: Normal inspection. negative: Dental caries Throat exam: Normal inspection. negative: Tonsillar erythema, Tonsillar exudate - Neck Neck exam: Normal inspection, Full ROM. negative: Tenderness - Respiratory Respiratory exam: Decreased breath sounds - Cardiovascular Cardiovascular Exam: Regular rate, Normal rhythm, Normal heart sounds - GI/Abdominal GI/Abdominal exam: Soft, Normal bowel sounds. negative: Tenderness - Rectal Rectal exam: Deferred - exam: Deferred - Extremities Extremities exam: Normal inspection, Full ROM, Normal capillary refill. negative: Pedal edema, Tenderness - Back Back exam: Reports: Normal inspection, Full ROM. Denies: Muscle spasm, Rash noted, Tenderness - Neurological Neurological exam: Alert, CN II-XII intact, Normal gait, Oriented X3 - Psychiatric Psychiatric exam: Normal affect, Normal mood - Skin Skin exam: Dry, Intact, Normal color, Warm Results - Labs Result Diagrams: 07/21/19 08:15 07/21/19 08:15 Labs Last 24 Hours: Laboratory Results - last 24 hr 07/21/19 07/21/19 07/21/19 08:15 08:15 08:15 WBC 8.6 RBC 4.40 Hgb 12.2 Hct 40.3 MCV 91.6 MCH 27.7 MCHC 30.3 L RDW 14.6 H Plt Count 255 MPV 10.1 Gran % 66.6 Lymphocytes % 24.2 Monocytes % 8.1 Eosinophils % 0.9 Basophils % 0.2 Absolute Neutrophils 5.71 D-Dimer 1.02 H Puncture Site pCO2 pO2 HCO3 Oxyhemoglobin ABG pH ABG O2 Saturation ABG Base Excess Frank Test Carboxyhemoglobin Methemoglobin Actual Respiration Rate FiO2 Sodium 142 Potassium 4.0 Chloride 100 Carbon Dioxide 29.0 Anion Gap 13.0 BUN 8 Creatinine 0.6 Estimated GFR > 60 Random Glucose 140 H Calcium 9.0 Total Bilirubin 0.50 AST 34 ALT 19 Alkaline Phosphatase 96 NT-Pro-B Natriuret Pep 837.60 H Total Protein 7.0 Albumin 4.1 Globulin 2.9 Albumin/Globulin Ratio 1.4 07/21/19 11:05 WBC RBC Hgb Hct MCV MCH MCHC RDW Plt Count MPV Gran % Lymphocytes % Monocytes % Eosinophils % Basophils % Absolute Neutrophils D-Dimer Puncture Site Right wrist pCO2 46.4 pO2 66.0 L HCO3 29.6 H Oxyhemoglobin Not Reportable ABG pH 7.42 ABG O2 Saturation Not Reportable ABG Base Excess 5.1 H Frank Test Pass Carboxyhemoglobin Not Reportable Methemoglobin Not Reportable Actual Respiration Rate 22.0 H FiO2 89.0 Sodium Potassium Chloride Carbon Dioxide Anion Gap BUN Creatinine Estimated GFR Random Glucose Calcium Total Bilirubin AST ALT Alkaline Phosphatase NT-Pro-B Natriuret Pep Total Protein Albumin Globulin Albumin/Globulin Ratio - Imaging and Cardiology CT scan - chest Status: Report reviewed VTE H&P Assessment - Risk for VTE Risk for VTE: Yes Risk Level: Moderate Risk Assessment Date: 07/21/19 Risk Assessment Time: 18:16 VTE Orders Placed or Will Be Placed: Yes Plan - Inpatient Certification Inpatient Certification: Admit to inpatient care: Based on my medical assessment, after consideration of patient's risk factors (age, co-morbidities and patient presenting symptoms and acuity), I expect that this patient will remain in the hospital greater than or equal to two midnights and that the services needed warrant inpatient care because: Patient Risk Factors: [advanced age, oxygen dependent, pneumonia] Estimated length of stay: [48-72 hours] The patient may reasonably be expected to be discharged or transferred to a hospital within 96 hours after admission to [facility]. Services needed: [Nursing, IV antibiotics, IV steroids, oxygen titration] Post hospital care (if known): [] I certify that my determination is in accordance with my understanding of Medicare requirements for reasonable and necessary inpatient services. 07/21/19 18:16 - Detailed Diagnosis and Plan (1) Pneumonia Current Visit: Yes Status: Acute Qualifiers: Pneumonia type: due to unspecified organism Laterality: right Lung location: lower lobe of lung Qualified Code(s): J18.1 - Lobar pneumonia, unspecified organism Base Code: J18.9 - PNEUMONIA, UNSPECIFIED ORGANISM Comment: 07/21/19 - CTA chest in ED performed due to elevated D-dimer, negative for PE. Did show RLL consolidation with pleural effusion with emphysematous changes. - Recommend follow up CTA in 6 months - Azithromycin 500mg QD, Rocephin 1gm QD - Solumedrol 60mg Q8 hr - O2 to keep SPO2 88-92% (baseline home O2 at 3L) - Albuterol q4hr PRN, Duoneb Q6hr PRN, Breo 100mg QD - Patient provided nebulizer machine for home use - CBC, CMP in am (2) COPD with acute exacerbation Current Visit: Yes Status: Acute Base Code: J44.1 - CHRONIC OBSTRUCTIVE PULMONARY DISEASE W (ACUTE) EXACERBATION Comment: 07/21/19 - CTA chest in ED performed due to elevated D-dimer, negative for PE. Did show RLL consolidation with pleural effusion with emphysematous changes. - Recommend follow up CTA in 6 months - Azithromycin 500mg QD, Rocephin 1gm QD - Solumedrol 60mg Q8 hr - O2 to keep SPO2 88-92% (baseline home O2 at 3L) - Albuterol q4hr PRN, Duoneb Q6hr PRN, Breo 100mg QD - Patient provided nebulizer machine for home use - CBC, CMP in am (3) Anxiety Current Visit: Yes Status: Acute Base Code: F41.9 - ANXIETY DISORDER, UNSPECIFIED Comment: 07/21/19 - Risperdal and Wellbutrin per home dosing, may use formulary changes - Samuel (4) Hypertension Current Visit: Yes Status: Acute Base Code: I10 - ESSENTIAL (PRIMARY) HYPERTENSION Comment: 07/21/19 - Metoprolol XL 50mg daily. - Hydralazine 10mg QID, hold for SBP < 130. (5) DVT prophylaxis Current Visit: No Status: Acute Base Code: Z29.9 - ENCOUNTER FOR PROPHYLACTIC MEASURES, UNSPECIFIED Comment: 07/21/19 - Moderate risk of DVT due impaired pulmonary function and bed rest. - Lovenox 40mg SQ daily. (6) Full code status Current Visit: No Status: Acute Base Code: Z78.9 - OTHER SPECIFIED HEALTH STATUS Comment: 07/21/19
[2019-07-21] MEDS: ACETAMINOPHEN 500 MG TABLET PO PRN ×2 (15:02→21:19)
[2019-07-21] MEDS ORDERED: CEFTRIAXONE SODIUM 1 GM in 0.9 % SODIUM CHLORIDE 100ML 100 ML IVPB SCH (15:30)
[2019-07-21] MEDS ORDERED: AZITHROMYCIN 500 MG in 0.9 % SODIUM CHLORIDE 250ML 250 ML IVPB SCH (15:30)
[2019-07-21] MEDS: BREO (FLUTICASONE/VILANTEROL) 100MCG/25MCG INHALER INH SCH (16:27)
[2019-07-21] MEDS: HYDRALAZINE HCL 10 MG TABLET PO SCH ×2 (17:17→21:25)
[2019-07-21] MEDS: IBUPROFEN 400 MG TABLET PO PRN (17:52)
[2019-07-21] MEDS: CEFTRIAXONE 1GM/50ML BAG 1 GM/50 ML BAG IVPB SCH (18:32)
[2019-07-21] MEDS: BUPROPION HCL 150 MG TAB.SR.12H PO SCH (21:25)
[2019-07-21] MEDS: RANITIDINE HCL 150 MG TABLET PO SCH (21:25)
[2019-07-22] MEDS: IPRATROPIUM/ALBUTEROL (0.5MG/3MG) NEB INH PRN (01:28)
[2019-07-22] MEDS ORDERED: ALPRAZOLAM 1 MG TAB PO ONE (01:31)
[2019-07-22] MEDS: PANTOPRAZOLE SODIUM 40 MG TABLET PO SCH (06:09)
[2019-07-22] MEDS: METHYLPREDNISOLONE PF 125MG/VIAL IVP SCH ×3 (06:10→21:25)
[2019-07-22] MEDS: IBUPROFEN 400 MG TABLET PO PRN ×2 (06:16→18:18)
[2019-07-22 07:10] LABS: ABSOLUTE NEUTROPHIL COUNT 7.15; BASO % 0.1 % (0-6); GRAN % 77.9 % (47-80); HEMATOCRIT 37.6 % (35.0-47.0); HEMOGLOBIN 11.3 gm/dl (11.6-16.0); LYMPH % 15.5 % (16-45); MEAN CELL VOLUME 92.2 fl (81-97); MEAN CORPUSCULAR HGB CONC 30.1 g/dl (32-36); MEAN PLATELET VOLUME 9.9 fl (7.4-10.4); MONO % 6.5 % (0-9); PLATELET COUNT 240 K/uL (130-400); RED BLOOD COUNT 4.08 M/uL (3.80-5.40); RED CELL DISTRIBUTION WIDTH 14.8 % (11.5-14.5); WHITE BLOOD COUNT W/O DIFF 9.2 K/uL (4.2-12.2)
[2019-07-22 07:18] LABS: MEAN CORPUSCULAR HEMOGLOBIN 27.6 pg (27-33)
[2019-07-22 07:22] LABS: ALB/GLOB RATIO 1.5 (1.1-1.8); ALKALINE PHOSPHATASE 85 U/L (35-104); ALT/SGPT 16 U/L (<33); AST/SGOT 23 U/L (10.0-35.0); BLOOD UREA NITROGEN 10 mg/dL (8-23); CREATININE 0.6 mg/dL (0.5-0.9); EST GLOMERULAR FILTRATION RATE > 60 mL/min; GLUCOSE,RANDOM 183 mg/dL (74-109); TOTAL PROTEIN 6.7 g/dL (6.6-8.7)
[2019-07-22] MEDS: METOPROLOL SUCC 50 MG TABLET PO SCH ×2 (08:10→09:39)
[2019-07-22] MEDS: HYDRALAZINE HCL 10 MG TABLET PO SCH ×5 (08:10→21:25)
[2019-07-22] MEDS: FUROSEMIDE 20 MG TABLET PO SCH (09:24)
[2019-07-22] MEDS: ASPIRIN 325 MG TAB ENTERIC-COATED PO SCH (09:24)
[2019-07-22] MEDS: BUPROPION HCL 150 MG TAB.SR.12H PO SCH ×2 (09:24→21:24)
[2019-07-22] MEDS: ENOXAPARIN 40 MG/0.4 ML SYR SQ SCH (09:24)
[2019-07-22] MEDS ORDERED: SERTRALINE HCL 50 MG TABLET PO SCH (10:00)
[2019-07-22] MEDS ORDERED: RISPERIDONE 1 MG TABLET PO SCH (10:00)
[2019-07-22] MEDS: RISPERIDONE 1 MG TABLET PO SCH ×2 (10:33→21:24)
[2019-07-22] MEDS: AZITHROMYCIN 500 MG TABLET PO SCH (10:33)
[2019-07-22] MEDS: BREO (FLUTICASONE/VILANTEROL) 100MCG/25MCG INHALER INH SCH (10:47)
[2019-07-22] MEDS: ALPRAZOLAM 1 MG TAB PO PRN (12:58)
--- NOTE | 2019-07-22 15:10 | Physician Progress Note ---
Subjective - Date Date of Physician Progress Note: 07/22/19 - Subjective Subjective Comment: NO new nursing concerns over night. Patient reports slight improvement in symptoms today, continues to have dyspnea on exertion while ambulating in room Objective - Vital Signs Vital Signs: Vital Signs - Last 24 Hrs Temp Pulse Pulse Resp BP Pulse Ox 07/22/19 12:00 90 24 176/94 07/22/19 10:40 99 07/22/19 10:35 101 H 16 07/22/19 07:34 98.1 F 91 H 24 201/98 95 07/22/19 05:00 97.8 F 100 H 22 147/86 93 L 07/22/19 01:30 94 H 20 94 L 07/22/19 00:00 97.7 F 92 H 22 153/88 94 L 07/21/19 20:00 98.2 F 96 H 20 115/66 93 L 07/21/19 18:09 99 H 18 93 L 07/21/19 18:06 100 H 18 90 L 07/21/19 16:10 97.7 F 100 H 151/81 92 L - General General Appearance: Alert, Oriented x3, Cooperative, No acute distress Limitations: No limitations - Head Head exam: Normal inspection - Eye Eye exam: Normal appearance, PERRL, EOMI Pupils: Normal accommodation - ENT ENT exam: Normal exam, Mucous membranes moist, Normal external ear exam, Normal orophraynx Ear exam: Normal external inspection. negative: External canal tenderness Nasal Exam: Normal inspection. negative: Discharge, Sinus tenderness Mouth exam: Normal external inspection, Tongue normal Teeth exam: Normal inspection. negative: Dental caries Throat exam: Normal inspection. negative: Tonsillar erythema, Tonsillar exudate - Neck Neck exam: Normal inspection, Full ROM. negative: Tenderness - Respiratory Respiratory exam: Decreased breath sounds - Cardiovascular Cardiovascular Exam: Regular rate, Normal rhythm, Normal heart sounds - GI/Abdominal GI/Abdominal exam: Soft, Normal bowel sounds. negative: Tenderness - Rectal Rectal exam: Deferred - exam: Deferred - Extremities Extremities exam: Normal inspection, Full ROM, Normal capillary refill. negative: Pedal edema, Tenderness - Back Back exam: Reports: Normal inspection, Full ROM. Denies: Muscle spasm, Rash noted, Tenderness - Neurological Neurological exam: Alert, CN II-XII intact, Normal gait, Oriented X3 - Psychiatric Psychiatric exam: Normal affect, Normal mood - Skin Skin exam: Dry, Intact, Normal color, Warm Assessment and Plan - Assessment and Plan (1) Pneumonia Current Visit: Yes Status: Acute Qualifiers: Pneumonia type: due to unspecified organism Laterality: right Lung location: lower lobe of lung Qualified Code(s): J18.1 - Lobar pneumonia, unspecified organism Base Code: J18.9 - PNEUMONIA, UNSPECIFIED ORGANISM Comment: 07/22/19 - CTA chest in ED performed due to elevated D-dimer, negative for PE. Did show RLL consolidation with pleural effusion with emphysematous changes and pulmonary hypertension - Recommend follow up CTA in 6 months - Azithromycin 500mg QD, Rocephin 1gm QD - Solumedrol 60mg Q8 hr - O2 to keep SPO2 88-92% (baseline home O2 at 3L) - Albuterol q4hr PRN, Duoneb Q6hr PRN, Breo 100mg QD - Patient provided nebulizer machine for home use (2) COPD with acute exacerbation Current Visit: Yes Status: Acute Base Code: J44.1 - CHRONIC OBSTRUCTIVE PULMONARY DISEASE W (ACUTE) EXACERBATION Comment: 07/22/19 - CTA chest in ED performed due to elevated D-dimer, negative for PE. Did show RLL consolidation with pleural effusion with emphysematous changes. - Recommend follow up CTA in 6 months - Azithromycin 500mg QD, Rocephin 1gm QD - Solumedrol 60mg Q8 hr - O2 to keep SPO2 88-92% (baseline home O2 at 3L) - Albuterol q4hr PRN, Duoneb Q6hr PRN, Breo 100mg QD - Patient provided nebulizer machine for home use (3) Anxiety Current Visit: Yes Status: Acute Base Code: F41.9 - ANXIETY DISORDER, UNSPECIFIED Comment: 07/22/19 - Risperdal and Wellbutrin per home dosing, may use formulary changes - Zoloft - Xanax 1mg BID (4) Hypertension Current Visit: Yes Status: Acute Base Code: I10 - ESSENTIAL (PRIMARY) HYPERTENSION Comment: 07/22/19 - Lopressor 100mg BID - Hydralazine 10mg QID, hold for SBP < 130. (5) DVT prophylaxis Current Visit: No Status: Acute Base Code: Z29.9 - ENCOUNTER FOR PROPHYLACTIC MEASURES, UNSPECIFIED Comment: 07/22/19 - Moderate risk of DVT due impaired pulmonary function and bed rest. - Lovenox 40mg SQ daily. (6) Full code status Current Visit: Yes Status: Acute Base Code: Z78.9 - OTHER SPECIFIED HEALTH STATUS Comment: 07/22/19 Results - Labs Result Diagrams: 07/22/19 06:30 07/22/19 06:30 Labs Last 24 Hours: Laboratory Results - last 24 hr 07/22/19 07/22/19 06:30 06:30 WBC 9.2 RBC 4.08 Hgb 11.3 L Hct 37.6 MCV 92.2 MCH 27.6 MCHC 30.1 L RDW 14.8 H Plt Count 240 MPV 9.9 Gran % 77.9 Lymphocytes % 15.5 L Monocytes % 6.5 Eosinophils % 0.0 Basophils % 0.1 Absolute Neutrophils 7.15 Sodium 143 Potassium 3.9 Chloride 101 Carbon Dioxide 30.0 H Anion Gap 12.0 BUN 10 Creatinine 0.6 Estimated GFR > 60 Random Glucose 183 H Calcium 9.2 Total Bilirubin 0.30 AST 23 ALT 16 Alkaline Phosphatase 85 Total Protein 6.7 Albumin 4.0 Globulin 2.7 Albumin/Globulin Ratio 1.5 DVT/PE Assessment - Risk for VTE Risk for VTE: No Risk Level: Moderate Risk Assessment Date: 07/21/19 Risk Assessment Time: 18:16 VTE Orders Placed or Will Be Placed: Yes - Active Medicaitons Current Medications: Current Medications Acetaminophen (Tylenol 500mg Tab) 1,000 mg PO Q6H PRN PRN Reason: PAIN - MILD(1-4)/FEVER Last Admin: 07/21/19 21:19 Dose: 1,000 mg Documented by: Albuterol Sulfate (Albuterol Sulfate) 2.5 mg INH RESP.Q4H PRN PRN Reason: DIFFICULTY IN BREATHING Albuterol/Ipratropium (Duoneb) 3 ml INH RESP.Q6H PRN PRN Reason: WHEEZING Last Admin: 07/22/19 01:28 Dose: 3 ml Documented by: Alprazolam (Xanax) 1 mg PO BID PRN PRN Reason: ANXIETY Last Admin: 07/22/19 12:58 Dose: 1 mg Documented by: Aspirin (Ecotrin (Ec)) 325 mg PO DAILY OWEN Last Admin: 07/22/19 09:24 Dose: 325 mg Documented by: Azithromycin (Zithromax) 500 mg PO DAILY [facility] Last Admin: 07/22/19 10:33 Dose: 500 mg Documented by: Bupropion HCl (Wellbutrin Sr) 150 mg PO BID [facility] Last Admin: 07/22/19 09:24 Dose: 150 mg Documented by: Enoxaparin Sodium (Lovenox) 40 mg SQ DAILY [facility] Last Admin: 07/22/19 09:24 Dose: 40 mg Documented by: Furosemide (Lasix) 20 mg PO DAILY [facility] Last Admin: 07/22/19 09:24 Dose: 20 mg Documented by: Hydralazine HCl (Apresoline) 10 mg PO TID [facility] Last Admin: 07/22/19 09:40 Dose: Not Given Documented by: CEFTRIAXONE 1GM/50ML BAG (Ceftriaxone 1 Gm-D5w Bag) 1 gm in 50 mls @ 100 mls/hr IVPB Q24H [facility] Last Infusion: 07/21/19 19:40 Dose: Infused Documented by: Ibuprofen (Motrin 400mg) 800 mg PO Q8H PRN PRN Reason: PAIN - MODERATE (5-7) Last Admin: 07/22/19 06:16 Dose: 800 mg Documented by: Methylprednisolone Sodium Succinate (Solu-Medrol) 60 mg IVP Q8H [facility] Last Admin: 07/22/19 12:29 Dose: 60 mg Documented by: Metoprolol Tartrate (Lopressor) 100 mg PO BID [facility] Last Admin: 07/22/19 06:09 Dose: 40 mg Documented by: Ranitidine HCl (Zantac) 300 mg PO QHS [facility] Last Admin: 07/21/19 21:25 Dose: 300 mg Documented by: Risperidone (Risperadol) 2 mg PO BID [facility] Last Admin: 07/22/19 10:33 Dose: 2 mg Documented by: Sertraline HCl (Zoloft) 100 mg PO BID [facility] AMI Plan - Labs Result Diagrams: 07/22/19 06:30 07/22/19 06:30
[2019-07-22] MEDS: CEFTRIAXONE 1GM/50ML BAG 1 GM/50 ML BAG IVPB SCH (16:19)
[2019-07-22] MEDS: SERTRALINE HCL 50 MG TABLET PO SCH (21:24)
[2019-07-22] MEDS: METOPROLOL TART 50 MG TABLET PO SCH (21:24)
[2019-07-22] MEDS: RANITIDINE HCL 150 MG TABLET PO SCH (21:25)
[2019-07-23] MEDS: METHYLPREDNISOLONE PF 125MG/VIAL IVP SCH ×2 (04:20→14:08)
[2019-07-23] MEDS: ALPRAZOLAM 1 MG TAB PO PRN (04:32)
[2019-07-23] MEDS: PANTOPRAZOLE SODIUM 40 MG TABLET PO SCH (06:10)
[2019-07-23] MEDS: BREO (FLUTICASONE/VILANTEROL) 100MCG/25MCG INHALER INH SCH (09:39)
[2019-07-23] MEDS: FUROSEMIDE 20 MG TABLET PO SCH (10:00)
[2019-07-23] MEDS: BUPROPION HCL 150 MG TAB.SR.12H PO SCH (10:00)
[2019-07-23] MEDS: ASPIRIN 325 MG TAB ENTERIC-COATED PO SCH (10:26)
[2019-07-23] MEDS: SERTRALINE HCL 50 MG TABLET PO SCH (10:28)
[2019-07-23] MEDS: HYDRALAZINE HCL 10 MG TABLET PO SCH ×2 (10:29→15:36)
[2019-07-23] MEDS: AZITHROMYCIN 500 MG TABLET PO SCH (10:29)
[2019-07-23] MEDS: RISPERIDONE 1 MG TABLET PO SCH (10:29)
[2019-07-23] MEDS: METOPROLOL TART 50 MG TABLET PO SCH (10:30)
[2019-07-23] MEDS: ENOXAPARIN 40 MG/0.4 ML SYR SQ SCH (10:31)
--- NOTE | 2019-07-23 11:59 | Discharge Summary ---
Providers Discharge Summary Date: 07/23/19 Date of admission: 07/21/19 12:47 Attending physician: JOSE CRUZ Primary care physician: FARHANA BELTRAN D.O. Physical Exam - Vital Signs Vital Signs: Vital Signs - Last 24 Hrs Temp Pulse Pulse Pulse Resp BP BP 07/23/19 09:54 16 07/23/19 09:39 94 H 18 07/23/19 07:45 98.2 F 70 18 122/90 07/23/19 04:00 97.9 F 80 20 149/82 07/23/19 00:00 81 20 148/80 07/22/19 21:00 22 07/22/19 20:00 97.8 F 87 22 158/77 07/22/19 16:17 98.1 F 95 H 24 172/79 07/22/19 12:00 90 24 176/94 Pulse Ox 07/23/19 09:54 07/23/19 09:39 93 L 07/23/19 07:45 92 L 07/23/19 04:00 94 L 07/23/19 00:00 95 07/22/19 21:00 07/22/19 20:00 92 L 07/22/19 16:17 93 L 07/22/19 12:00 - General General Appearance: Alert, Oriented x3, Cooperative, No acute distress Limitations: No limitations - Head Head exam: Normal inspection - Eye Eye exam: Normal appearance, PERRL, EOMI Pupils: Normal accommodation - ENT ENT exam: Normal exam, Mucous membranes moist, Normal external ear exam, Normal orophraynx Ear exam: Normal external inspection. negative: External canal tenderness Nasal Exam: Normal inspection. negative: Discharge, Sinus tenderness Mouth exam: Normal external inspection, Tongue normal Teeth exam: Normal inspection. negative: Dental caries Throat exam: Normal inspection. negative: Tonsillar erythema, Tonsillar exudate - Neck Neck exam: Normal inspection, Full ROM. negative: Tenderness - Respiratory Respiratory exam: Normal lung sounds bilaterally - Cardiovascular Cardiovascular Exam: Regular rate, Normal rhythm, Normal heart sounds - GI/Abdominal GI/Abdominal exam: Soft, Normal bowel sounds. negative: Tenderness - Rectal Rectal exam: Deferred - exam: Deferred - Extremities Extremities exam: Normal inspection, Full ROM, Normal capillary refill. negative: Pedal edema, Tenderness - Back Back exam: Reports: Normal inspection, Full ROM. Denies: Muscle spasm, Rash noted, Tenderness - Neurological Neurological exam: Alert, CN II-XII intact, Normal gait, Oriented X3 - Psychiatric Psychiatric exam: Normal affect, Normal mood - Skin Skin exam: Dry, Intact, Normal color, Warm Hospitalization - Hospitalization Admission Diagnosis: acute exacerbation of copd with hypoxia - Problem List/Discharge Diagnosis (1) Pneumonia Current Visit: Yes Status: Acute Discharge Diagnosis: Pneumonia type: due to unspecified organism Laterality: right Lung location: lower lobe of lung Qualified Code(s): J18.1 - Lobar pneumonia, unspecified organism Base Code: J18.9 - PNEUMONIA, UNSPECIFIED ORGANISM Comment: 07/23/19 - CTA chest in ED performed due to elevated D-dimer, negative for PE. Did show RLL consolidation with pleural effusion with emphysematous changes and pulmonary hypertension - Recommend follow up CTA in 6 months - Signigificant clinical improvement over night, maintaining SPO2 88-92% on baseline 3L - Prednisone 20mg BID x 5 days at time of discharge - Complete Azithromycin for total of 5 days - O2 to keep SPO2 88-92% (baseline home O2 at 3L) - Breo 100mg QD, continue home medications - Patient provided nebulizer machine for home use - Follow up with PCP 1 week (2) COPD with acute exacerbation Current Visit: Yes Status: Acute Base Code: J44.1 - CHRONIC OBSTRUCTIVE PULMONARY DISEASE W (ACUTE) EXACERBATION Comment: 07/23/19 - CTA chest in ED performed due to elevated D-dimer, negative for PE. Did show RLL consolidation with pleural effusion with emphysematous changes and pulmonary hypertension - Recommend follow up CTA in 6 months - Signigificant clinical improvement over night, maintaining SPO2 88-92% on baseline 3L - Prednisone 20mg BID x 5 days at time of discharge - Complete Azithromycin for total of 5 days (3) Anxiety Current Visit: Yes Status: Acute Base Code: F41.9 - ANXIETY DISORDER, UNSPECIFIED Comment: 07/23/19 - Risperdal and Wellbutrin per home dosing, may use formulary changes - Zoloft - Xanax 1mg BID (4) Hypertension Current Visit: Yes Status: Acute Base Code: I10 - ESSENTIAL (PRIMARY) HYPERTENSION Comment: 07/23/19 - Lopressor 100mg BID - Hydralazine 10mg QID, hold for SBP < 130. (5) DVT prophylaxis Current Visit: No Status: Acute Base Code: Z29.9 - ENCOUNTER FOR PROPHYLACTIC MEASURES, UNSPECIFIED Comment: 07/23/19 - Moderate risk of DVT due impaired pulmonary function and bed rest. - Lovenox 40mg SQ daily. (6) Full code status Current Visit: Yes Status: Acute Base Code: Z78.9 - OTHER SPECIFIED HEALTH STATUS Comment: 07/23/19 - Hospitalization Course Disposition: Home, Self-Care Hospital Course: 64 y/o female presented to ED for shortness of breath, worse with walking and a non-productive cough. Reports overall ot feeling well for about 1.5 weeks with increased cough and body aches. Denies fever, chills, chest pain. Past medical history includes oxygen dependent COPD (3L), former cigarette smoker (quit 6 months ago), HTN, headaches, GERD, anxiety and depression. While in ED was afebrile, RR 24, SPO2 95%, down to 86% on 3L with activity. CBC unremarkable. D-Dimer 1.02. ABG pH 7.42, pO2 66, HCo3 29.6. CMP unremarkable. ProBNP 837.60. CTA- pulmonary HTN, enlarged right peritracheal lymph nodes, enl arged AP window lymph modes, bilar perihilar adenopathy, moderate emphysematous changes, patchy ground glass attenuation to lung parenchyma 2/2 pulmonary edema, small RLL pleural effusion with consolidation. Admitted for IV antibiotics, IV steroids. 07/21/19 1500- resting in bed comfortably, reports her shortness of breath has much improved since arrival to the ED but not at baseline. Denies any new swelling or activity intolerance at home outside of current symptoms and illness. 07/23/19 1030- Hospital course uneventful. Responded well to IV antibiotic an IV steroids. Remained afebrile. D-dimer elevated in the ED, a CTA chest was completed showing RLL consoidatiion with pleural effusion, moderate emphysematous changes and pulmonary edema. Echo complete showing normal diastolic function, normal pulmonary pressures and ejection fraction 55-60%. Prescription given for compressed nebulizer machine and duonebs for home management of COPD. She was able to reduce O2 use to her baseline 3L ATC at time of discharge with overall clinical improvement. Procedures: Imaging and X-Rays 07/21/19 09:14 CHEST CTA w contrast [CTA] Stat Cardiology Procedures 07/21/19 15:08 EKG ONCE 07/22/19 07:00 Echo W/CF & Cardiac Doppler NOW Abnormal Labs: Abnormal Lab Results 07/21/19 07/21/19 07/21/19 Range/Units 08:15 08:15 08:15 Hgb (11.6-16.0) gm/dl MCHC 30.3 L (32-36) g/dl RDW 14.6 H (11.5-14.5) % Lymphocytes % (16-45) % D-Dimer 1.02 H (0-0.59) mg/L FEU pO2 (83-108) mmHg HCO3 (18-23) mmol/L ABG Base Excess (-2 - 3) mmol/L Actual Respiration Rate (10-18) /MIN Carbon Dioxide (22-29) mmol/L Random Glucose 140 H (74-109) mg/dL NT-Pro-B Natriuret Pep 837.60 H (<125) pg/mL 07/21/19 07/22/19 07/22/19 Range/Units 11:05 06:30 06:30 Hgb 11.3 L (11.6-16.0) gm/dl MCHC 30.1 L (32-36) g/dl RDW 14.8 H (11.5-14.5) % Lymphocytes % 15.5 L (16-45) % D-Dimer (0-0.59) mg/L FEU pO2 66.0 L (83-108) mmHg HCO3 29.6 H (18-23) mmol/L ABG Base Excess 5.1 H (-2 - 3) mmol/L Actual Respiration Rate 22.0 H (10-18) /MIN Carbon Dioxide 30.0 H (22-29) mmol/L Random Glucose 183 H (74-109) mg/dL NT-Pro-B Natriuret Pep (<125) pg/mL Discharge Medications - Discharge Medications Prescriptions: Azithromycin 250 mg PO DAILY #3 tablet Fluticasone/Vilanterol 100/25 [Breo Ellipta 100-25 Mcg INH] 1 puff INH DAILY #1 inhaler Ipratropium/Albuterol [Duoneb] 3 ml INH Q4H PRN #1 box PRN Reason: Wheezing Prednisone [Prednisone 20Mg] 20 mg PO BID #10 tab Home Medications: Ambulatory Orders Aspirin [Aspirin EC] 325 mg PO DAILY 04/28/15 [Last Taken 07/21/19] Omeprazole [Prilosec] 20 mg PO DAILYAC 04/28/15 [Last Taken 07/21/19] Ranitidine HCl [Zantac] 300 mg PO QHS 04/28/15 [Last Taken 07/21/19] Sertraline HCl [Zoloft] 100 mg PO BID 01/14/19 [Last Taken 07/21/19] Hydralazine HCl [Apresoline] 10 mg PO TID #30 tablet 05/17/19 [Last Taken 07/21/19] Albuterol Sulfate [Proair Hfa] 1 - 2 puff IH QID PRN 07/22/19 [Last Taken Unknown] Alprazolam 1 mg PO BID PRN 07/22/19 [Last Taken Unknown] Bupropion HCl [Bupropion HCl Sr] 150 mg PO BID 07/22/19 [Last Taken Unknown] Metoprolol Tartrate 100 mg PO BID 07/22/19 [Last Taken Unknown] Risperidone [Risperdal] 2 mg PO BID 07/22/19 [Last Taken Unknown] Zafirlukast [Accolate] 20 mg PO BID 07/22/19 [Last Taken Unknown] Azithromycin 250 mg PO DAILY #3 tablet 07/23/19 [Last Taken Unknown] Fluticasone/Vilanterol 100/25 [Breo Ellipta 100-25 Mcg INH] 1 puff INH DAILY #1 inhaler 07/23/19 [Last Taken Unknown] Ipratropium/Albuterol [Duoneb] 3 ml INH Q4H PRN #1 box 07/23/19 [Last Taken Unknown] Prednisone [Prednisone 20Mg] 20 mg PO BID #10 tab 07/23/19 [Last Taken Unknown] Discharge Plan - Discharge Instructions Activity at Discharge: Increase Activity as Tolerated Diet at Discharge: Advance to Usual Diet Instructions: COPD (Chronic Obstructive Pulmonary Disease) (DC) Additional Instructions: Appointment with Dr. Beltran, 07/30 at 7:00AM [facility] will send a nurse to see you at home. Residential can be reached at Quality Measures - Quality Measures Quality Measures: Advance Directives, Documentation of Current Medications in Medical Record, Elder Maltreatment Screen and Follow-Up Plan, Screening for High Blood Pressure and F/U Documented - Current Medications Quality Measure: Measure #130: Documentation of Current Medications Documentation of Current Medications: <Current Medications Documented/Reviewed> [B1529] - Blood Pressure Screening Quality Measure: Screening for High Blood Pressure and Follow-Up Documented Does Patient Have Any of the Following: Active Dx of HTN Blood Pressure Classification: Pre-Hypertensive BP Reading Systolic Measurement: 143 Diastolic Measurement: 82 Screening for High Blood Pressure: Patient Exclusion, Hx of HTN [G9744] - Advance Directives Quality Measure: Measure #47: Care Plan Advance Directives Established: No Advance Directives Information Provided To Patient: No Advance Directives on File: No Living Will: No Power of Farmworker Poultry: No Advance Care Planning: <Care Plan/Decision Maker Documented; Discussed & Documented> [1123K] - Elder Abuse Suspicion Index Screening: Elder Abuse Suspicion Index Screening Rely on people for bathing, dressing, shopping, banking, etc: No Prevented from getting food, clothes, medication, etc: No Made to feel shamed or threatened by someone: No Forced to sign papers or use money against will: No Feel afraid, touched in ways not wanted or hurt physically: No Poor eye contact, withdrawn, malnourished, cuts or bruises: No Screening Result: Negative result EASI Reference Information: Shannon DOMINGO, Tavon C, Cale D, Danial Membreno.Development and validation of a tool to assist physicians identification of elder abuse: The Elder Abuse Suspicion Index (EASI ). Journal of Elder Abuse and Neglect, 2008; 20 (3): 276-300. - Elder Maltreatment Screen Quality Measures: Elder Maltreatment Screen and Follow-Up Plan Elder Maltreatment Screen: <Negative, No Follow-Up Plan Required> [G8734]
[2019-07-23] MEDS: IBUPROFEN 400 MG TABLET PO PRN (12:15)
[2019-07-23] MEDS: CEFTRIAXONE 1GM/50ML BAG 1 GM/50 ML BAG IVPB SCH ×2 (14:18→17:32)
[2019-07-23] MEDS: ACETAMINOPHEN 500 MG TABLET PO PRN (17:31)
== END 2019-07-23 19:02 | disposition home or self-care (01) | DRG 194 ==
LOC: ER 08:03 → MEDSURG 12:47
PROVIDERS: ADMIT Internal Medicine; ATTEND Internal Medicine
DX: J18.9 Pneumonia, unspecified organism (principal); J44.1 Chronic obstructive pulmonary disease with (acute) exacerbation; R09.02 Hypoxemia; I10 Essential (primary) hypertension; F41.8 Other specified anxiety disorders; K21.9 Gastro-esophageal reflux disease without esophagitis; Z99.81 Dependence on supplemental oxygen; Z23 Encounter for immunization; Z87.891 Personal history of nicotine dependence
CPT/HCPCS: 85025; 82375; 80053; 82803; 85379; 83880; 71275; 94640 ×3; 36600; Q9967; 90670; 90686; 93005; 93306; 94760; 94761; 96374; 96376; 99223; 99233; 99239; 99285; J0456; J0696; J1650; J2930; J3490; J7050; J7613

== ENCOUNTER 2019-10-22 13:09 | Day surgery (SDC) | payer MEDICARE, MEDICAID ==
[2019-10-22] MEDS ORDERED: LIDOCAINE 2% MDV (20MG/ML) 20ML VIAL IV ONE (13:10)
[2019-10-22] MEDS ORDERED: PROPOFOL 10 MG/ML VIAL IV ONE (13:10)
--- NOTE | 2019-10-30 10:51 | Operative Note ---
OPERATION: COLONOSCOPY with cold snare polypectomy x4. PREOPERATIVE DIAGNOSIS: Polyp surveillance. POSTOPERATIVE DIAGNOSIS: Multiple colon polyps including 1 ascending, 2 descending, and 1 sigmoid colon polyp all removed with a cold snare. ESTIMATED BLOOD LOSS: Minimum. COMPLICATIONS: None apparent. PREPARATION QUALITY: Good to excellent. PROCEDURE: After informed consent was obtained from the patient, she was placed in the left lateral decubitus position in the endoscopy suite, sedated and monitored by the department of anesthesia. Digital rectal examination was unremarkable. A well-lubricated [id number] colonoscope was inserted into the rectum and advanced to the cecum. Preparation quality was good to excellent. The cecum and cecal bulb were unremarkable. The ascending colon revealed a 6 mm sessile polyp removed with a cold snare. The polyp was retrieved without incident. The transverse colon and remainder of the ascending colon were unremarkable. In the descending colon, there were 2 polyps ranging in size from 4-6 mm each removed with a cold snare and retrieved. There was a 5 mm sigmoid polyp removed with a cold snare as well. The remainder of the descending, sigmoid colon, and rectum were unrevealing. J-turn views of the anorectum were unremarkable. The endoscope was straightened, the rectal ampulla deflated, and the endoscope was removed. RECOMMENDATIONS: The patient should resume her medications and diet. She will require repeat exam in 3-5 years pending tissue histology. As always, thank you for allowing me to participate in the healthcare of your patients. LENIN
== END 2019-10-22 14:55 | disposition home or self-care (01) ==
LOC: HOP 13:09
PROVIDERS: ATTEND Internal Medicine Gastroenterology
DX: Z12.11 Encounter for screening for malignant neoplasm of colon (principal); D12.2 Benign neoplasm of ascending colon; D12.4 Benign neoplasm of descending colon; D12.5 Benign neoplasm of sigmoid colon; F41.8 Other specified anxiety disorders; J44.9 Chronic obstructive pulmonary disease, unspecified; I10 Essential (primary) hypertension